=== PATIENT | male | born 1945 | race Caucasian/White ===

== ENCOUNTER → 2018-03-12 08:04 | Outpatient (CLI) | payer MEDICARE, SELFPAY ==
[2018-03-12 09:57] LABS: Alanine Aminotransferase 33 U/L (12-78); Albumin Level 3.9 gm/dL (3.4-5.0); Albumin/Globulin Ratio 1.5 (1.1-1.8); Alkaline Phosphatase 47 U/L (46-116); Anion Gap 12.2 mEq/L (5-15); Aspartate Amino Transferase 20 U/L (15-37); Bilirubin,Total 0.6 mg/dL (0.2-1.0); Blood Urea Nitrogen 17 mg/dL (7-18); Calcium 8.8 mg/dL (8.5-10.1); Carbon Dioxide 26 mmol/L (21.0-32.0); Chloride 108 mmol/L (98-107); Chol/HDL Ratio 3.7 (1-3.5); Cholesterol 116 mg/dL (140-200); Creatinine,Serum 1.09 mg/dL (0.70-1.30); Estimated Glomerular Filt Rate 66 ml/min (>60); GFR (African American) 80 ML/MIN (>60); Globulin 2.6 gm/dl (1.3-3.2); Glucose 106 mg/dL (74-106); HDL Cholesterol 31 mg/dL (27-67); LDL Cholesterol 65 mg/dL (0-130); Potassium 4.2 mmoL/L (3.5-5.1); Sodium 142 mmol/L (136-145); Total Protein,Serum 6.5 gm/dL (6.4-8.2); Triglycerides 101 mg/dL (30-200); VLDL Cholesterol 20 mg/dL (0-40)
== END ==
PROVIDERS: PCP Internal Medicine; Visit Provider Internal Medicine
DX: I25.10 Atherosclerotic heart disease of native coronary artery without angina pectoris (principal); E03.9 Hypothyroidism, unspecified; E78.5 Hyperlipidemia, unspecified
CPT/HCPCS: 36415; 80053; 80061; 84443

== ENCOUNTER → 2019-01-06 07:16 | Outpatient (CLI) | payer MEDICARE, SELFPAY ==
--- NOTE | 2019-01-06 07:20 | CA_ITS ---
PROCEDURE: 2-D M-mode and color Doppler study INDICATIONS FOR THE TEST: Chest pain COPD Heart Murmur Tobacco Smoking Palpitations Fatigue+ Syncope Edema Hypertension Diabetes Mellitus Rheumatic Fever SOB+ELIZABETH+Obesity Hyperlipidemia+ Family History HD Additional History ABN EKG, CABG 2001 PATIENT INFORMATION HEIGHT: 75 WEIGHT:231 GENDER: Male B/P:137/87 2-D/M-MODE INTERPRETATION: 2-D MEASUREMENTS OBSERVED VALUES IN CMS Right Ventricular Dimension (RVDd) 2.9 Interventricular Septum (Thickness)(IVsd) 1.3 Left Ventricular Internal Dimensions(LVIDd) 4.6 Left Ventricular Posterior Wall (Thickness)(LVPWd) 1.2 Aortic Root 3.5 Aortic Cusp Separation 2.1 Left Atrial Dimensions (LAD) 4.2 2D 1. Left atrium is mildly enlarged, left ventricle is normal size, visually estimated ejection fraction approximately 45%, there is marked hypokinesis involving the distal septum, anteroapical and apical wall. There is mild concentric left ventricular hypertrophy seen. 2. The right atrium and right ventricle are mildly enlarged with normal contractility. 3. The aortic valve is minimally thickened and fibrosed. 4. The mitral and tricuspid valve leaflets are minimally thickened. 5. The pulmonic valve is poorly visualized. 6. No significant pericardial effusion noted. DOPPLER INTERROGATION: Doppler interrogation of the aortic, mitral and tricuspid valvular presence of mild mitral and tricuspid regurgitation, tricuspid regurgitation jet velocity is inadequate for calculation of the right ventricular systolic pressure, grade 1 diastolic dysfunction seen with tissue Doppler evidence of raised left atrial pressure. CONCLUSION: 1. Mildly enlarged left atrium, normal left ventricular size, mild concentric left ventricular hypertrophy, visually estimated ejection fraction 45% with segmental wall motion abnormality described above, grade 1 diastolic dysfunction seen with tissue Doppler evidence of raised left atrial pressure. 2. Mild mitral and tricuspid regurgitation 3. No significant pericardial effusion noted.
--- NOTE | 2019-01-06 07:21 | NM_ITS ---
SPECT MYOCARDIAL PERFUSION SCAN, REST AND STRESS: EXERCISE STRESS: [facility] REVIEW QGS EF AND WALL MOTION EVALUATION: QPS - PERFUSION EVALUATION: HISTORY: CAD, ABN EKG PROCEDURE: Rest imaging performed after administration of10.59 millicuries Tc MIBI. Dose administered at7:30 a.m., with imaging thereafter. Stress imaging was then performed following8 minutes 15 seconds of exercise stress. The patient achieved a heart [id number] with projected heart rate of124 . Resting BP145/85 with stress 188/50. At maximum exercise stress,32.0 millicuries Tc MIBI administered at9:00 a.m. with [id number] minutes thereafter. FINDINGS: Perfusion Evaluation: The single slice spect images as well as the [facility] bull's-eye data summary were reviewed. Wall Motion and Ejection Fraction Evaluation: Gated SPECT review and analysis used to evaluate these features. There is a 40 % left ventricular ejection fraction. There seems to be good wall motion Stress images reveal severely decreased activity in the mid anterior apical wall severely decreased in the septum and moderately decreased in the inferior wall. 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 Severely reduced ejection fraction at 40% with mid anterior apical inferior apical hypokinesis. High risk abnormal stress test with clinical correlation required
--- NOTE | 2019-01-06 08:08 | HMH.ITSHM ---
Current Home Medications as stated by this patient Hang Pedersen or unit support representative. []ASA LEVOTHYROXINE FENOFIBRATE ATORVASTATIN
== END ==
PROVIDERS: PCP Internal Medicine; Visit Provider Nurse Practitioner Family
DX: I25.10 Atherosclerotic heart disease of native coronary artery without angina pectoris; R06.00 Dyspnea, unspecified; Z95.1 Presence of aortocoronary bypass graft
CPT/HCPCS: 78452; 93017; 93306; A9502

== ENCOUNTER → 2020-03-07 13:42 | Outpatient (CLI) | payer MEDICARE, SELFPAY ==
--- NOTE | 2020-03-07 13:48 | CA_ITS ---
APPROVED REPORT EXAM: Comprehensive 2D, Doppler, and color-flow Echocardiogram Metal Bonding Assembler: Lanie Mart CRT Ht: 6 ft 2 in Wt: 232lbs BSA: 2.31 BP: 129/77 mmHg Indications: Shortness of Breath, CAD, Hyperlipidemia, CM, CABG 2D Dimensions LVOT 1.71 cm (M/F) 1.5-2.5 M-Mode Dimensions RVDd 3.17 cm (0.9-2.6) LVDd 5.98 cm (3.5-5.7) LVDs 3.73 cm (3.5-5.7) IVSd 1.76 cm (0.6-1.1) PWd 0.76 cm (0.6-1.1) EF (Teich) 66.80% FS 37.60% EDV (Teich) 178.60 mL ESV (Teich) 59.30 mL LV Diastology E/A Ratio 0.75 Mitral Valve MV A Velocity 69.00 (40-130 cm/s) Left Ventricle Left atrium is mildly enlarged, left ventricle is normal size, mild concentric left ventricular hypertrophy, visually estimated ejection fraction of 50%, there appears to be moderate hypokinesis involving the distal septum and apical wall. Grade 1 diastolic dysfunction seen without tissue Doppler evidence of raise left atrial pressure. Right Ventricle Right atrium and right ventricle are normal size and contractility. Aortic Valve Aortic valve is minimally thickened and fibrosed. There is no aortic stenosis, there is trace aortic insufficiency. Mitral Valve Mitral valve is grossly normal, there is mild mitral regurgitation. Tricuspid Valve Tricuspid valve is grossly normal, there is mild tricuspid regurgitation, tricuspid regurgitation jet velocity is inadequate for calculation of the right ventricular systolic pressure. Pulmonic Valve Pulmonic valve is poorly visualized. Great Vessels Aortic root is normal size. Pericardium No significant pericardial effusion noted. Conclusion 1. Mildly enlarged left atrium, normal left ventricular size, mild concentric left ventricular hypertrophy, visually estimated ejection fraction 50% with segmental wall motion abnormality described above, grade 1 diastolic dysfunction seen without tissue Doppler evidence of raise left atrial pressure. 2. Minimally thickened and calcified aortic valve without aortic stenosis, there is trace aortic insufficiency. 3. Mild mitral and tricuspid regurgitation. 4. No significant pericardial effusion noted. Electronically signed by : Vincenzo Rankin 03/07/2020 19:08:27
== END ==
PROVIDERS: PCP Internal Medicine; Visit Provider Nurse Practitioner Family
DX: R94.31 Abnormal electrocardiogram [ECG] [EKG] (principal)
CPT/HCPCS: 93306

== ENCOUNTER 2020-04-05 08:59 | Outpatient (RCR) | payer MEDICARE, SELFPAY | END 2020-09-07 13:52 | disposition home or self-care (01) | LOC: PT 08:59 | PROVIDERS: Visit Provider Internal Medicine | DX: I25.10 Atherosclerotic heart disease of native coronary artery without angina pectoris (principal) | CPT/HCPCS: 93798 ==

== ENCOUNTER → 2020-12-23 09:35 | Outpatient (CLI) | payer MEDICARE, SELFPAY ==
--- NOTE | 2020-12-23 09:41 | XR_ITS ---
PROCEDURE: XR LUMBAR SPINE MIN 4V CLINICAL INDICATION: LOW BACK PAIN COMPARISON: No exams were available for comparison FINDINGS: Five views are obtained. Mild scoliosis convex to the left. Severe bilateral facet spondylosis of L5-S1 with moderate bilateral facet spondylosis of L4-5. Severe degenerative change of L5-S1 with moderate diffuse degenerative change elsewhere throughout the lumbar spine. SI joints are normal. Gallbladder surgically absent. Some degenerative change of the lower thoracic spine noted. IMPRESSION: Severe degenerative change of L5-S1 with moderate degenerative change elsewhere throughout the lumbar spine and severe bilateral facet spondylosis of L5-S1. Moderate bilateral facet spondylosis of L4-5. Mild levoscoliosis. No acute fracture or subluxation. Dictated by: Hermilo Delgado MD 12/23/2020 10:08 Hermilo Delgado MD in [place] 12/23/2020 10:08
[2020-12-23 10:50] LABS: Alanine Aminotransferase 47 U/L (12-78); Albumin Level 4.5 g/dl (3.5-5.0); Albumin/Globulin Ratio 1.9 (1.1-1.8); Alkaline Phosphatase 41 U/L (38-126); Anion Gap 14.2 mEq/L (5-15); Aspartate Amino Transferase 44 U/L (17-59); Bilirubin,Total 0.9 mg/dl (0.2-1.3); Blood Urea Nitrogen 14 mg/dl (9-20); Calcium 9.3 mg/dl (8.4-10.2); Carbon Dioxide 27 mmol/L (22.0-30.0); Chloride 104 mmol/L (98-107); Chol/HDL Ratio 5.8 (1-3.5); Cholesterol 190 mg/dl (140-200); Estimated Glomerular Filt Rate 73 ml/min (>60); GFR (African American) 88 ML/MIN (>60); Globulin 2.4 g/dL (1.3-3.2); Glucose 109 mg/dl (74-100); HDL Cholesterol 33 mg/dl (40-60); Potassium 5.2 mmoL/L (3.5-5.1); Sodium 140 mmol/L (136-145); Total Protein,Serum 6.9 g/dl (6.3-8.2); Triglycerides 192 mg/dl (30-150); VLDL Cholesterol 38 mg/dL (0-40)
[2020-12-23 11:01] LABS: Direct LDL Cholesterol 125.42 mg/dL (100-129)
[2020-12-23 11:20] LABS: Prostate Specific Ag, Diagnost 0.679 ng/ml (0.0-4.0); Thyroid Stimulating Hormone 2.79 uIU/mL (0.465-4.68)
== END ==
PROVIDERS: PCP Internal Medicine; Visit Provider Internal Medicine
DX: I25.10 Atherosclerotic heart disease of native coronary artery without angina pectoris (principal); E78.5 Hyperlipidemia, unspecified; E03.9 Hypothyroidism, unspecified; N40.1 Benign prostatic hyperplasia with lower urinary tract symptoms; M54.5 Low back pain; Z95.1 Presence of aortocoronary bypass graft
CPT/HCPCS: 36415; 72110; 80053; 80061; 84153; 84443

== ENCOUNTER → 2021-01-09 15:24 | Outpatient (CLI) | payer MEDICARE, SELFPAY ==
--- NOTE | 2021-01-09 15:25 | MR_ITS ---
PROCEDURE: MR LUMBAR SPINE WO CON CLINICAL INDICATION: SEVERE DISC DEGENERATION, MILD SCOLIOSIS, LOW BACK PAIN COMPARISON: CR XR LUMBAR SPINE MIN 4V from 12/23/2020 TECHNIQUE: Standard multiplanar multiecho sequences are performed without contrast. 3-D MIP and myelographic images are also rendered and reviewed FINDINGS: There is normal alignment. The spinal cord ends the T12-L1 level. L1-L2: Mild facet and ligamentum hypertrophic change L2-L3: Mild facet and ligamentum hypertrophic change. L3-L4: Facet ligamentum hypertrophy. There is right lateral recess narrowing with the facet abutting upon the right L4 nerve root. Small amount fluid is present in the facet joint on right this level. L4-5: Mild degenerative disc disease with facet ligamentum hypertrophy and mild bilateral foraminal narrowing. This is slightly greater on the left. Minimal bulging disc. L5-S1: 5 mm anterolisthesis of L5 with mild degenerative disc disease. There is moderate left-sided facet and ligamentum hypertrophic change. Bulging disc is present at this level eccentric to the left with a broad based left paracentral, foraminal, and lateral disc osteophyte complex causing left-sided foraminal narrowing and impinging upon the exiting L5 nerve root. IMPRESSION: Multilevel lumbar spondylosis. Please see above for detailed description at each level. There bulging discs, facet and ligamentum hypertrophy and a prominent left paracentral foraminal and lateral disc osteophyte complex at L5-S1. No extruded herniated disc evident. Dictated by: Good Esqueda MD 01/09/2021 16:34 Good Esqueda MD in [place] 01/09/2021 16:34
== END ==
PROVIDERS: PCP Internal Medicine; Visit Provider Internal Medicine
DX: M54.5 Low back pain (principal); M51.36 Other intervertebral disc degeneration, lumbar region; M41.9 Scoliosis, unspecified
CPT/HCPCS: 72148; 76376

== ENCOUNTER → 2021-06-20 09:19 | Outpatient (CLI) | payer MEDICARE, SELFPAY ==
[2021-06-20 10:24] LABS: Chloride 106 mmol/L (98-107); Potassium 4.4 mmoL/L (3.5-5.1); Sodium 139 mmol/L (136-145)
[2021-06-20 10:26] LABS: Alanine Aminotransferase 51 U/L (12-78); Aspartate Amino Transferase 49 U/L (17-59); Blood Urea Nitrogen 14 mg/dl (9-20); Estimated Glomerular Filt Rate 82 ml/min (>60); GFR (African American) 99 ML/MIN (>60)
[2021-06-20 10:27] LABS: Albumin Level 4.6 g/dl (3.5-5.0); Albumin/Globulin Ratio 1.8 (1.1-1.8); Alkaline Phosphatase 44 U/L (38-126); Anion Gap 14.4 mEq/L (5-15); Bilirubin,Total 0.6 mg/dl (0.2-1.3); Calcium 9.5 mg/dl (8.4-10.2); Carbon Dioxide 23 mmol/L (22.0-30.0); Chol/HDL Ratio 5.8 (1-3.5); Cholesterol 207 mg/dl (140-200); Globulin 2.6 g/dL (1.3-3.2); Glucose 107 mg/dl (74-100); HDL Cholesterol 36 mg/dl (40-60); Total Protein,Serum 7.2 g/dl (6.3-8.2); Triglycerides 228 mg/dl (30-150); VLDL Cholesterol 46 mg/dL (0-40)
[2021-06-20 10:38] LABS: Direct LDL Cholesterol 137.61 mg/dL (100-129)
--- NOTE | 2021-06-20 12:55 | CA_ITS ---
APPROVED REPORT EXAM: Comprehensive 2D, Doppler, and color-flow Echocardiogram Variety Lathe Operator: Lanie Mart CRT Ht: 6 ft 3 in Wt: 232lbs BSA: 2.34 BP: 133/77 mmHg Indications: Abnormal ECG, Shortness of Breath, Hyperlipidemia, Cardiomyopathy, CABG 2D Dimensions LVOT 1.87 cm (M/F) 1.5-2.5 LA Volume 36.30 mL LA Volume Index 15.50 mL/m2 (M/F) 16-34 M-Mode Dimensions RVDd 2.96 cm (0.9-2.6) LA Diam 3.59 cm (1.9-4.0) LVDd 5.59 cm (3.5-5.7) Ao Diam 4.50 cm (2.0-3.7) LVDs 3.84 cm (3.5-5.7) IVSd 1.75 cm (0.6-1.1) PWd 0.80 cm (0.6-1.1) EF (Teich) 58.50% FS 31.30% EDV (Teich) 153.00 mL TAPSE 1.53 (<1.7) ESV (Teich) 63.50 mL LV Diastology E Decel Time 263.00 (160-240 msec) E/A Ratio 0.68 MED E' 4.50 (< 7 cm/sec) MED A' 7.40 cm/s E'/MED E' Ratio 12.53 (>14) LAT E' 7.00 (<10 cm/sec) LAT A' 9.50 cm/s E/LAT E' Ratio 8.06 (>14) Aortic Valve AO Peak GR. 4.40 mmHg Mitral Valve MV A Velocity 83.00 (40-130 cm/s) E/A Ratio 0.68 MV Decel. Time 263.00 (160-240 ms) Pulmonary Valve PV Peak Velocity 98.00 (50-150 cm/s) Tricuspid Valve TR P. Velocity 201.00 cm/s RAP Estimate 10.00 mmHg RVSP 26.10 mmHg Left Ventricle Technically difficult study because of the patient factors and poor acoustic windows. Left atrium is mildly enlarged, left ventricle is normal size, mild concentric left ventricular hypertrophy, visually estimated ejection fraction 55% with no regional wall motion abnormality, grade 1 diastolic dysfunction seen without tissue Doppler evidence of raise left atrial pressure. Right Ventricle Right atrium and right ventricle are normal size and contractility. Aortic Valve Aortic valve is minimally thickened and fibrosed, there is no aortic stenosis or aortic insufficiency Mitral Valve Mitral valve is grossly normal, there is trace mitral regurgitation. Tricuspid Valve Tricuspid grossly normal, there is trace tricuspid regurgitation, tricuspid regurgitation jet velocity is inadequate for calculation of the right ventricular systolic pressure. Pulmonic Valve Pulmonic valve is poorly visualized. Great Vessels Aortic root is normal size. Inferior vena cava is poorly visualized. Pericardium No significant pericardial effusion noted. Conclusion #1. Mildly enlarged left atrium, normal left ventricular size, mild concentric left ventricular hypertrophy, visually estimated ejection fraction 55% with no regional wall motion abnormality, grade 1 diastolic dysfunction seen without tissue Doppler evidence of raise left atrial pressure. #2. Trace mitral and tricuspid regurgitation. #3. No significant pericardial effusion. #4. Inferior vena cava is poorly visualized. Electronically signed by : Vincenzo Rankni MD 06/20/2021 19:39:24
== END ==
PROVIDERS: PCP Internal Medicine; Visit Provider Urology
DX: E78.2 Mixed hyperlipidemia (principal); I25.10 Atherosclerotic heart disease of native coronary artery without angina pectoris; I35.1 Nonrheumatic aortic (valve) insufficiency; I42.9 Cardiomyopathy, unspecified; R06.02 Shortness of breath; R94.31 Abnormal electrocardiogram [ECG] [EKG]; Z95.1 Presence of aortocoronary bypass graft
CPT/HCPCS: 36415; 80053; 80061; 93306

== ENCOUNTER → 2021-06-23 15:17 | Outpatient (CLI) | payer MEDICARE, SELFPAY ==
--- NOTE | 2021-06-23 15:20 | XR_ITS ---
PROCEDURE: XR SHOULDER LT MIN 2V CLINICAL INDICATION: BILAT SHOULDER PAIN COMPARISON: No exams were available for comparison FINDINGS: No fracture or dislocation. No lytic or blastic change. There is normal mineralization. Mild osteoarthritic change at the acromioclavicular joint. There is subacromial narrowing with some irregularity of the greater tuberosity cortical surface. Minimal osteoarthritic change glenohumeral joint. Other findings:None. 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
--- NOTE | 2021-06-23 15:20 | XR_ITS ---
PROCEDURE: XR SHOULDER RT MIN 2V CLINICAL INDICATION: BILAT SHOULDER PAIN COMPARISON: No exams were available for comparison FINDINGS: No fracture or dislocation. No lytic or blastic change. There is normal mineralization. Mild osteoarthritis of the acromioclavicular joint and glenohumeral joint with subacromial stenosis and minimal cortical irregularity of the greater tuberosity. Other findings:None. IMPRESSION: Mild osteoarthritis of the acromioclavicular joint and glenohumeral joint with subacromial stenosis and minimal cortical irregularity of the greater tuberosity Dictated by: Good Esqueda MD 06/23/2021 18:26 Good Esqueda MD in [place] 06/23/2021 18:26
== END ==
PROVIDERS: PCP Internal Medicine; Visit Provider Internal Medicine
DX: M25.511 Pain in right shoulder (principal); M25.512 Pain in left shoulder
CPT/HCPCS: 73030

== ENCOUNTER → 2021-12-20 15:26 | Outpatient (CLI) | payer MEDICARE, SELFPAY ==
[2021-12-20 16:44] LABS: Basophils # 0.1 K/mm3 (0-0.2); Eosinophils # 0.4 K/mm3 (0.0-0.4); Hematocrit 47.5 % (42.0-52.0); Hemoglobin 16.3 g/dL (14.1-18.0); Lymphocytes # 2.3 K/mm3 (0.7-4.5); Lymphocytes % 35.5 % (10-50); Mean Corpuscular HGB Conc 34.3 g/dL (31.8-35.4); Mean Corpuscular Hemoglobin 33.2 pg (27.0-31.2); Mean Corpuscular Volume 96.7 fl (80-94); Mean Platelet Volume 8.2 fl (7.4-10.4); Monocytes # 0.5 K/mm3 (0.1-1.0); Monocytes % 7.7 % (1.7-9.3); Neutrophils # 3.2 K/mm3 (1.8-7.8); Neutrophils % 49.7 % (37.0-80.0); Platelet Count 231 K/mm3 (142-424); Red Blood Count 4.91 M/mm3 (4.60-6.20); Red Cell Distribution Width 14.1 % (11.5-17.5); White Blood Count 6.4 K/mm3 (4.8-10.8)
[2021-12-20 17:20] LABS: Alanine Aminotransferase 40 U/L (12-78); Albumin Level 4.3 g/dl (3.5-5.0); Alkaline Phosphatase 50 U/L (38-126); Anion Gap 11.6 mEq/L (5-15); Aspartate Amino Transferase 48 U/L (17-59); Bilirubin,Total 0.5 mg/dl (0.2-1.3); Blood Urea Nitrogen 21 mg/dl (9-20); Calcium 9.7 mg/dl (8.4-10.2); Carbon Dioxide 29 mmol/L (22.0-30.0); Chloride 104 mmol/L (98-107); Cholesterol 109 mg/dl (140-200); Estimated Glomerular Filt Rate 65 ml/min (>60); GFR (African American) 79 ML/MIN (>60); Globulin 2.2 g/dL (1.3-3.2); Glucose 105 mg/dl (74-100); HDL Cholesterol 27 mg/dl (40-60); Potassium 4.6 mmoL/L (3.5-5.1); Sodium 140 mmol/L (136-145); Total Protein,Serum 6.5 g/dl (6.3-8.2); Triglycerides 157 mg/dl (30-150); VLDL Cholesterol 31 mg/dL (0-40)
[2021-12-20 17:42] LABS: Direct LDL Cholesterol 58.48 mg/dL (100-129)
[2021-12-20 17:51] LABS: Prostate Specific Ag Screen 0.9 ng/ml (0.0-4.0); Thyroid Stimulating Hormone 3.14 uIU/mL (0.465-4.68)
== END ==
PROVIDERS: PCP Internal Medicine; Visit Provider Internal Medicine
DX: I25.10 Atherosclerotic heart disease of native coronary artery without angina pectoris (principal); E03.9 Hypothyroidism, unspecified; E78.5 Hyperlipidemia, unspecified; N40.1 Benign prostatic hyperplasia with lower urinary tract symptoms; Z12.5 Encounter for screening for malignant neoplasm of prostate; Z95.1 Presence of aortocoronary bypass graft
CPT/HCPCS: 36415; 80053; 80061; 84443; 85025; G0103

== ENCOUNTER → 2022-06-20 09:22 | Outpatient (CLI) | payer MEDICARE, SELFPAY ==
[2022-06-20 10:59] LABS: Chloride 107 mmol/L (98-107); Potassium 4.3 mmoL/L (3.5-5.1); Sodium 139 mmol/L (136-145)
[2022-06-20 11:02] LABS: Alanine Aminotransferase 35 U/L (12-78); Albumin Level 4.4 g/dl (3.5-5.0); Albumin/Globulin Ratio 1.9 (1.1-1.8); Alkaline Phosphatase 50 U/L (38-126); Anion Gap 13.3 mEq/L (5-15); Aspartate Amino Transferase 37 U/L (17-59); Bilirubin,Total 0.7 mg/dl (0.2-1.3); Blood Urea Nitrogen 14 mg/dl (9-20); Carbon Dioxide 23 mmol/L (22.0-30.0); Cholesterol 125 mg/dl (140-200); Estimated Glomerular Filt Rate 82 ml/min (>60); GFR (African American) 99 ML/MIN (>60); Globulin 2.3 g/dL (1.3-3.2); Total Protein,Serum 6.7 g/dl (6.3-8.2); Triglycerides 131 mg/dl (30-150); VLDL Cholesterol 26 mg/dL (0-40)
[2022-06-20 11:03] LABS: Calcium 9.7 mg/dl (8.4-10.2); Chol/HDL Ratio 4.5 (1-3.5); Glucose 103 mg/dl (74-100); HDL Cholesterol 28 mg/dl (40-60)
[2022-06-20 11:14] LABS: Direct LDL Cholesterol 71.19 mg/dL (100-129)
== END ==
PROVIDERS: PCP Internal Medicine; Visit Provider Internal Medicine
DX: I25.10 Atherosclerotic heart disease of native coronary artery without angina pectoris (principal); E03.9 Hypothyroidism, unspecified; E78.5 Hyperlipidemia, unspecified; M15.0 Primary generalized (osteo)arthritis; Z95.1 Presence of aortocoronary bypass graft
CPT/HCPCS: 36415; 80053; 80061

== ENCOUNTER → 2022-12-19 14:42 | Outpatient (CLI) | payer MEDICARE, SELFPAY | PROVIDERS: PCP Internal Medicine; Visit Provider Internal Medicine | DX: I25.10 Atherosclerotic heart disease of native coronary artery without angina pectoris (principal) ==

== ENCOUNTER → 2022-12-24 08:17 | Outpatient (CLI) | payer MEDICARE, SELFPAY ==
[2022-12-24 10:06] LABS: Basophils % 0.3 % (0.1-2.0); Eosinophils # 0.4 K/mm3 (0.0-0.4); Eosinophils % 7.4 % (0.1-12.0); Hematocrit 48.9 % (42.0-52.0); Hemoglobin 16.2 g/dL (14.1-18.0); Lymphocytes # 1.9 K/mm3 (0.7-4.5); Lymphocytes % 35.1 % (10-50); Mean Corpuscular Hemoglobin 31.5 pg (27.0-31.2); Mean Corpuscular Volume 95.5 fl (80-94); Mean Platelet Volume 7.8 fl (7.4-10.4); Monocytes # 0.5 K/mm3 (0.1-1.0); Monocytes % 9.2 % (1.7-9.3); Neutrophils # 2.6 K/mm3 (1.8-7.8); Platelet Count 208 K/mm3 (142-424); Red Blood Count 5.12 M/mm3 (4.60-6.20); Red Cell Distribution Width 14.4 % (11.5-17.5); White Blood Count 5.4 K/mm3 (4.8-10.8)
[2022-12-24 10:47] LABS: Alanine Aminotransferase 37 U/L (12-78); Albumin Level 4.4 g/dl (3.5-5.0); Albumin/Globulin Ratio 1.9 (1.1-1.8); Alkaline Phosphatase 40 U/L (38-126); Anion Gap 15.5 mEq/L (5-15); Aspartate Amino Transferase 40 U/L (17-59); Bilirubin,Total 0.8 mg/dl (0.2-1.3); Blood Urea Nitrogen 16 mg/dl (9-20); Calcium 9.2 mg/dl (8.4-10.2); Carbon Dioxide 27 mmol/L (22.0-30.0); Chloride 102 mmol/L (98-107); Chol/HDL Ratio 4.1 (1-3.5); Cholesterol 118 mg/dl (140-200); Estimated Glomerular Filt Rate 72 ml/min (>60); GFR (African American) 87 ML/MIN (>60); Globulin 2.3 g/dL (1.3-3.2); Glucose 99 mg/dl (74-100); HDL Cholesterol 29 mg/dl (40-60); Potassium 4.5 mmoL/L (3.5-5.1); Sodium 140 mmol/L (136-145); Total Protein,Serum 6.7 g/dl (6.3-8.2); Triglycerides 135 mg/dl (30-150); VLDL Cholesterol 27 mg/dL (0-40)
[2022-12-24 10:58] LABS: Direct LDL Cholesterol 67.31 mg/dL (100-129)
[2022-12-24 11:18] LABS: Prostate Specific Ag Screen 0.9 ng/ml (0.0-4.0)
== END ==
PROVIDERS: PCP Internal Medicine; Visit Provider Internal Medicine
DX: I25.10 Atherosclerotic heart disease of native coronary artery without angina pectoris (principal); E03.9 Hypothyroidism, unspecified; E78.5 Hyperlipidemia, unspecified; M15.0 Primary generalized (osteo)arthritis; N40.1 Benign prostatic hyperplasia with lower urinary tract symptoms; Z12.5 Encounter for screening for malignant neoplasm of prostate
CPT/HCPCS: 36415; 80053; 80061; 84443; 85025; G0103

== ENCOUNTER 2023-01-24 08:41 | Emergency (ER) | payer MEDICARE, SELFPAY ==
[2023-01-24 08:41] VITALS: BP 146/60; PULSE 60; RESP 18; TEMP 36.4; O2SAT 98; BMI 28.7
--- NOTE | 2023-01-24 08:50 | EXP.UTC ---
Discharge Plan Disposition Patient Disposition: Home, Self-Care Condition: Good Prescriptions Prescriptions: New methylprednisolone 4 mg Tablets,Dose Pack 4 mg PO DIRECTED Qty: 21 0RF cyclobenzaprine 5 mg tablet 5 mg PO BIDP PRN (Reason: muscle spasm) Qty: 20 0RF No Action oxybutynin chloride 10 mg tablet extended release 24hr 10 mg PO DAILY loratadine 10 mg tablet 10 mg PO DAILY fenofibrate nanocrystallized 145 mg tablet 145 mg PO DAILY aspirin [Adult Low Dose Aspirin] 81 mg tablet,delayed release (DR/EC) 81 mg PO DAILY levothyroxine [Synthroid] 75 mcg tablet 88 mcg PO DAILY atorvastatin 80 mg tablet 80 mg PO HS losartan 25 mg tablet See Rx Instructions .ROUTE .COMPLEX Qty: 90 2RF Dose Instruction: TAKE 1 TABLET DAILY Rx Instructions: TAKE 1 TABLET DAILY Referrals Follow up/Referrals: Koko Castillo MD [Primary Care Provider] - See instructions Activity Restrictions/Add. Instructions Additional Instructions/Restrictions: Go home and rest. It would be best if you rested tomorrow too. No heavy lifting. No twisting. Take the oral medications as directed. The muscle relaxer (cyclobenzaprine--Flexeril) will make you drowsy, so don't drive or operate heavy machinery after taking it. Don't start the oral steroids (medrol dose pack) until tomorrow, since you had the shots in here today. Follow up with your regular doctor. GO TO THE ER FOR ANY WORSENING SYMPTOMS OR CONCERN, ESPECIALLY BOWEL OR BLADDER ISSUES, SADDLE AREA NUMBNESS, FEVER, ETC Clinical Impressions Clinical Impression: Hip pain, right Instructions Patient Instructions: DI for Sciatica Discharge ED Provider: Hermilo Zuñiga [facility] General Stated complaint: RT hip pain no known accident Time Seen by Provider: 01/24/23 08:50 History of Present Illness Provider Complaint: He states that for the past 2 days he has had worsening right hip pain that radiates down his right leg. He denies any injury and recent falls. He does have a history of having flare ups of pain like this. He has been diagnosed with sciatica in the past. He denies any urinary complaints. Related Data Home Medications Medication Instructions Recorded Confirmed aspirin 81 mg tablet,delayed 81 mg PO DAILY 12/29/18 12/27/22 release (Adult Low Dose Aspirin) fenofibrate nanocrystallized 145 145 mg PO DAILY 12/29/18 12/27/22 mg tablet levothyroxine 75 mcg tablet 88 mcg PO DAILY 08/18/19 12/27/22 (Synthroid) atorvastatin 80 mg tablet 80 mg PO HS 06/28/21 12/27/22 loratadine 10 mg tablet 10 mg PO DAILY 12/27/22 12/27/22 oxybutynin chloride 10 mg 10 mg PO DAILY 12/27/22 12/27/22 tablet,extended release 24 hr Previous Rx's Medication Instructions Recorded losartan 25 mg tablet See Rx Instructions .Route 06/28/21 .COMPLEX #90 tabs cyclobenzaprine 5 mg tablet 5 mg PO BIDP PRN muscle spasm #20 01/24/23 tabs methylprednisolone 4 mg tablets in 4 mg PO DIRECTED #21 tabs 01/24/23 a dose pack Allergies Allergy/AdvReac Type Severity Reaction Status Date / Time No Known Allergies Allergy Verified 12/27/22 09:15 [facility] Disclaimer: The information contained in this section may have been updated after the patient was seen, as this information can be updated by other users. Medical History Cardiomyopathy Social History Smoking Status: Never smoker second hand exposure: No alcohol intake: never substance use type: denies use current occupational status: retired Travel in the last 8 weeks: Inside the [place] household members: spouse housing: house ROS Obtained: Yes All systems reviewed & no additional complaints except as documented Constitutional Constitutional: Denies chills and Denies fever(s) Eyes Eyes: Denies eye discharge ENT
[2023-01-24 09:34] VITALS: BP 146/60; PULSE 60; RESP 18; TEMP 36.4; O2SAT 98
== END 2023-01-24 09:35 | disposition home or self-care (01) ==
PROVIDERS: Emergency Provider Nurse Practitioner Family; PCP Internal Medicine
DX: M25.551 Pain in right hip (principal); I42.9 Cardiomyopathy, unspecified
CPT/HCPCS: 96372; 99204; 99212; G0463

== ENCOUNTER → 2023-06-19 09:24 | Outpatient (CLI) | payer MEDICARE, SELFPAY ==
[2023-06-19 10:20] LABS: Chloride 105 mmol/L (98-107); Potassium 4.7 mmoL/L (3.5-5.1); Sodium 140 mmol/L (136-145)
[2023-06-19 10:22] LABS: Alanine Aminotransferase 34 U/L (12-78); Aspartate Amino Transferase 37 U/L (17-59); Blood Urea Nitrogen 16 mg/dl (9-20); Estimated Glomerular Filt Rate 72 ml/min (>60); GFR (African American) 87 ML/MIN (>60)
[2023-06-19 10:23] LABS: Albumin Level 4.9 g/dl (3.5-5.0); Alkaline Phosphatase 42 U/L (38-126); Anion Gap 9.7 mEq/L (5-15); Bilirubin,Total 0.8 mg/dl (0.2-1.3); Calcium 9.4 mg/dl (8.4-10.2); Carbon Dioxide 30 mmol/L (22.0-30.0); Globulin 2.5 g/dL (1.3-3.2); Glucose 106 mg/dl (74-100); Total Protein,Serum 7.4 g/dl (6.3-8.2)
[2023-06-19 12:04] LABS: Cholesterol 132 mg/dl (140-200); HDL Cholesterol 33 mg/dl (40-60); Triglycerides 118 mg/dl (30-150); VLDL Cholesterol 24 mg/dL (0-40)
[2023-06-19 12:15] LABS: Direct LDL Cholesterol 84.43 mg/dL (100-129)
== END ==
PROVIDERS: PCP Internal Medicine; Visit Provider Internal Medicine
DX: I25.10 Atherosclerotic heart disease of native coronary artery without angina pectoris (principal); Z95.1 Presence of aortocoronary bypass graft; E78.5 Hyperlipidemia, unspecified; M15.0 Primary generalized (osteo)arthritis; E03.9 Hypothyroidism, unspecified; N40.1 Benign prostatic hyperplasia with lower urinary tract symptoms
CPT/HCPCS: 36415; 80053; 80061

== ENCOUNTER → 2023-09-09 08:58 | Outpatient (POV) | payer MEDICARE, SELFPAY ==
--- NOTE | 2023-09-09 09:26 | A.OFFVIS_ITS ---
HPI Data of Consult Patient: new to practice Consult date: 09/09/23 Requesting Physician: Trisha Chavez APRN Primary Care Provider: Koko Castillo MD Consult Narrative Reason for consult: Low back pain, leg pain, history right SI issues History of present illness: Mr. Pedersen is a 78 year old male who presents today as a new patient. He is a referral from Dr. Castillo's office. Today he rates his pain a 5 out of 10. Patient states he has pain throughout his low back with occasional hip pain more prominent on the right side. Patient does state that the SI issues will occasionally flareup however it is not always constant. 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 He states that this pain has significantly improved however he continues to have pain in his low back that is worse into his legs when he is up for prolonged standing or walking. Patient states that the pain is an aching, sharp sensation that does make him have to stop and sit and take breaks. Patient states that he is perfectly fine when he is resting or sitting in a chair with minimal pain. Patient does state the current issues are interfering with his ability perform activities of daily living such as cooking and cleaning. Patient does state that he frequently has to lean when doing the dishes due to the worsening pain symptoms. Patient has tried ikwb-wbo-eaiwico medication along with heat and ice and topicals such as diclofenac with minimal relief. Patient is interested in any help we may be able to provide. Patient does state that he has had a prior MRI in the past. Patient is not on any scheduled medications. His Stevan has been reviewed and is appropriate. CC: Trisha Chavez APRN [facility] Disclaimer: The information contained in this section may have been updated after the patient was seen, as this information can be updated by other users. Medical History (Updated 09/09/23 @ 10:13 by Trisha Chavez APRN) Cardiomyopathy Family History (Updated 09/09/23 @ 09:34 by Blaine Liriano RN) Other No significant family history Social History Smoking Status: Never smoker second hand exposure: No alcohol intake: never substance use type: denies use current occupational status: employed Travel in the last 8 weeks: None household members: spouse housing: house Review of Systems Review of Systems Review of systems:: pertinent systems reviewed and negative unless documented below Review of systems (narrative): Review of Systems: General: No recent weight changes, no fever, no sleep disturbances Respiratory: No cough, no shortness of air, no recurring pulmonary infections Cardiovascular/peripheral vascular: No chest pain, no palpitations, no edema, no shortness of breath Gastrointestinal: No new onset incontinence, normal bowel movements reported Genitourinary: No new onset incontinence Musculoskeletal: Low back pain, leg pain Psychiatric: [Normal mood/affect] Neurological: [Denies weakness in extremities], [denies balance issues] Meds Home Medications and Allergies Home Medications Medication Instructions Recorded Confirmed Type aspirin 81 mg tablet,delayed 81 mg PO DAILY 12/29/18 07/04/23 History release (Adult Low Dose Aspirin) fenofibrate nanocrystallized 145 145 mg PO DAILY 12/29/18 07/04/23 History mg tablet levothyroxine 75 mcg tablet 88 mcg PO DAILY 08/18/19 07/04/23 History (Synthroid) atorvastatin 80 mg tablet 80 mg PO HS 06/28/21 07/04/23 History losartan 25 mg tablet See Rx Instructions .Route 06/28/21 07/04/23 Rx .COMPLEX #90 tabs oxybutynin chloride 10 mg 10 mg PO DAILY 12/27/22 07/04/23 History tablet,extended release 24 hr New Prescriptions to Start Prescriptions: Allergies Allergy/AdvReac Type Severity Reaction Status Date / Time No Known Allergies Allergy Verified 07/04/23 09:37 Objective Narrative: Physical Exam: General: Alert and oriented x3, no acute distress, pleasant and cooperative Lungs: Respirations even and unlabored, symmetrical chest expansion Eyes: PERRL Musculoskeletal: Flexion and extension of lumbar [spine] somewhat guarded se condary to pain, [antalgic gait noted] Neurological: Speech clear, no gross sensory deficit Additional findings Additional findings: FINDINGS: No fracture or dislocation. No lytic or blastic change. There is normal mineralization. Mild osteoarthritic change at the acromioclavicular joint. There is subacromial narrowing with some irregularity of the greater tuberosity cortical surface. Minimal osteoarthritic change glenohumeral joint. Other findings:None. 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 No lytic or blastic change. There is normal mineralization. Mild osteoarthritis of the acromioclavicular joint and glenohumeral joint with subacromial stenosis and minimal cortical irregularity of the greater tuberosity. Other findings:None. IMPRESSION: Mild osteoarthritis of the acromioclavicular joint and glenohumeral joint with subacromial stenosis and minimal cortical irregularity of the greater tuberosity Dictated by: Good Esqueda MD 06/23/2021 18:26 Good Esqueda MD in [place] 06/23/2021 18:[address] [id number] Magnetic Resonance Report Signed Patient: Hang Pedersen MR#: [id number] : 1945 Acct:[id number] Age/Sex: 75 / M ADM Date: 01/09/21 Loc: RAD Attending Dr: Koko Castillo Ordering Physician: Koko Castillo Date of Service: 01/09/21 Procedure(s): MR lumbar spine wo con Accession Number(s): [id number] cc: Good Esqueda MD; Koko Castillo ~ PROCEDURE: MR LUMBAR SPINE WO CON CLINICAL INDICATION: SEVERE DISC DEGENERATION, MILD SCOLIOSIS, LOW BACK PAIN COMPARISON: CR XR LUMBAR SPINE MIN 4V from 12/23/2020 TECHNIQUE: Standard multiplanar multiecho sequences are performed without contrast. 3-D MIP and myelographic images are also rendered and reviewed FINDINGS: There is normal alignment. The spinal cord ends the T12-L1 level. L1-L2: Mild facet and ligamentum hypertrophic change L2-L3: Mild facet and ligamentum hypertrophic change. L3-L4: Facet ligamentum hypertrophy. There is right lateral recess narrowing with the facet abutting upon the right L4 nerve root. Small amount fluid is present in the facet joint on right this level. L4-5: Mild degenerative disc disease with facet ligamentum hypertrophy and mild bilateral foraminal narrowing. This is slightly greater on the left. Minimal bulging disc. L5-S1: 5 mm anterolisthesis of L5 with mild degenerative disc disease. There is moderate left-sided facet and ligamentum hypertrophic change. Bulging disc is present at this level eccentric to the left with a broad based left paracentral, foraminal, and lateral disc osteophyte complex causing left-sided foraminal narrowing and impinging upon the exiting L5 nerve root. IMPRESSION: Multilevel lumbar spondylosis. Please see above for detailed description at each level. There bulging discs, facet and ligamentum hypertrophy and a prominent left paracentral foraminal and lateral disc osteophyte complex at L5-S1. No extruded herniated disc evident. Dictated by: Good Esqueda MD 01/09/2021 16:34 Good Esqueda MD in [place] 01/09/2021 16:34 Assessment and Plan *Assessment and plan (1) Degenerative disc disease, lumbar: Status: Acute Category: Medical Code(s): M51.36 - Other intervertebral disc degeneration, lumbar region (2) Lumbar radiculopathy: Status: Acute Category: Medical Code(s): M54.16 - Radiculopathy, lumbar region (3) Bilateral hip pain: Status: Acute Category: Medical Code(s): M25.551 - Pain in right hip; M25.552 - Pain in left hip (4) Lumbar spinal stenosis: Status: Acute Qualifiers: Neurogenic claudication status: with neurogenic claudication Qualified Code(s): M48.062 - Spinal stenosis, lumbar region with neurogenic claudication Category: Medical Code(s): M48.061 - Spinal stenosis, lumbar region without neurogenic claudication Plan Patient is experiencing significant pain in his low back and legs with prolonged standing or walking. Patient did have limited range of motion of his lumbar spine during today's exam. I have discussed with the patient that he may benefit from a lumbar epidural steroid injection. Risk and benefits were discussed with the patient and he will proceed forward with this plan of care. I will also order the patient a compounded cream. Patient did have multilevel ligamentum flavum hypertrophy and symptoms consistent with lumbar spinal stenosis with neurogenic claudication symptoms. Patient was counseled that he may be a beneficial candidate of a lumbar decompression in the future. We will follow-up with this at future visits. Patient will be scheduled for a lumbar epidural steroid injection L4-L5 with epidurogram under fluoroscopy. Patient has been instructed to contact the clinic with any concerns before the next appointment. Dr. Velázquez has reviewed this note and agrees with this plan of care. This note was dictated using voice recognition software and make contain errors or omissions.
[2023-09-09 09:28] VITALS: BP 150/90; PULSE 69; RESP 18; BMI 26.9
== END ==
PROVIDERS: PCP Internal Medicine; Visit Provider Nurse Practitioner Family
DX: M25.551 Pain in right hip; M25.552 Pain in left hip; M48.062 Spinal stenosis, lumbar region with neurogenic claudication; M51.16 Intervertebral disc disorders with radiculopathy, lumbar region
CPT/HCPCS: 99202; G0463

== ENCOUNTER 2023-10-08 09:11 | Day surgery (SDC) | payer MEDICARE, SELFPAY ==
[2023-10-08 09:16] VITALS: BP 131/72; PULSE 63; RESP 18; O2SAT 98; BMI 26.9
[2023-10-08] MEDS: methylPREDNISolone ACETATE 80MG/ML VIAL 80 MG (09:52)
[2023-10-08] MEDS: LIDOCAINE 1% 30ML PF VIAL 30 ML (09:52)
[2023-10-08 09:54] VITALS: BP 128/64; PULSE 59; RESP 18; O2SAT 98
[2023-10-08 09:55] VITALS: BP 128/64; PULSE 58; RESP 18; O2SAT 98
[2023-10-08 10:10] VITALS: BP 132/74; PULSE 59; RESP 20; O2SAT 95
[2023-10-08] MEDS: IOPAMIDOL-200 (41%);10ML VIAL 10 ML IV (12:59)
--- NOTE | 2023-10-08 13:38 | P.PCN_ITS ---
Procedure Date: 10/08/23 Time: 13:39 Anesthesiologist:: Jose A Velázquez MD Complications:: None Pre-procedure Diagnosis:: Degenerative disc disease of lumbar spine with lumbar spinal stenosis and neurogenic claudication symptoms with lumbar radiculopathy symptoms Post-procedure Diagnosis:: Same Indications for Procedure:: This patient is a pleasant 78-year-old white male who we are treating for low back pain with lumbar spinal stenosis and neurogenic claudication symptoms along with some lumbar radiculopathy symptoms. He has not had a lumbar epidural steroid injection before however his MRI does indicate severe degenerative changes with ligamentum flavum hypertrophy at L2-L3, L3-4, L4-5 and L5-S1. Most of his pain is in the back and legs. He has increased pain while standing and walking. Will do a lumbar epidural steroid injection with epidurogram today to assess levels of stenosis and candidacy for minimally invasive lumbar decompression. Procedure Details:: Lumbar epidural steroid injection with epidurogram informed consent was obtained and the risk and benefits of the procedure was explained to the patient. The patient was taken to the procedure room. The patient was placed prone on the procedure table. The patient was prepped and draped in sterile fashion. C-arm fluoroscopy was used to view the lumbar spine. Skin and subcutaneous tissues were anesthetized using lidocaine. I placed an 18-gauge epidural needle and advanced into the L4-L5 interspace using fluoroscopic guidance and [id number] to air. After confirmation of needle placement in the epidural space with dye I injected 2 mL of lidocaine 1 .5% with Depo-Medrol 80 mg. Patient tolerated the procedure well with no complications. Plan and Disposition:: Based on epidurogram patient does have some stenosis at L3-L4 and L4-L5. However this is not severe. We will follow-up with this patient to assess efficacy of this lumbar epidural steroid injection since he has not had 1 before and if it is not long-lasting we may proceed to minimally invasive lumbar decompression bilateral L3-L4 and L4-L5. He does have significant stenosis at these levels based on epidurogram and MRI. However, we will first assess efficacy of this lumbar epidural steroid injection since he is not had these before.
== END 2023-10-08 10:10 | disposition home or self-care (01) ==
LOC: SC.PAINP 09:12
PROVIDERS: PCP Internal Medicine; Visit Provider Anesthesiology
DX: M51.16 Intervertebral disc disorders with radiculopathy, lumbar region (principal); M48.062 Spinal stenosis, lumbar region with neurogenic claudication
CPT/HCPCS: 62323; J1010; Q9966

== ENCOUNTER 2023-10-23 09:10 | Outpatient (POV) | payer MEDICARE, SELFPAY ==
[2023-10-23 09:11] VITALS: BP 144/94; PULSE 67; RESP 18; O2SAT 97; BMI 27.5
--- NOTE | 2023-10-23 10:15 | EXP.PAIN.SOA ---
[facility] Pain Management SOAP Note Subjective:: Patient is a pleasant 78-year-old male who presents today for follow-up of lumbar epidural steroid injection L4-L5 with epidurogram on 10/08/2023. Today he rates his pain a 0 out of 10 however he states it will go up much higher as he increases his activity throughout the day. Patient states that it is still his low back pain that is causing more severe symptoms and that it will go past a 5 out of 10. Patient does state that he has not noticed any improvement following this injection. Patient did have the epidurogram to assess his ligamentum flavum hypertrophy and was found to have more prominent stenosis at the L3-L4 level and L4-L5 level. Patient does state that he continues to have chronic pain that is fine when he sitting however when he gets up and starts to walk he does have symptoms radiating down into his legs. Patient states this does interfere with his ability perform activities of daily living such as cooking and cleaning. Patient has tried and failed [id number] medication, heat and ice and topicals with minimal relief. Patient was also prescribed compounded cream at our last visit however states that he did not notice significant relief with this either. His Stevan has been reviewed and is appropriate. Review of Systems: General: No recent weight changes, no fever, no sleep disturbances Respiratory: No cough, no shortness of air, no recurring pulmonary infections Cardiovascular/peripheral vascular: No chest pain, no palpitations, no edema, no shortness of breath Gastrointestinal: No new onset incontinence, normal bowel movements reported Genitourinary: No new onset incontinence Musculoskeletal: Low back pain, bilateral leg pain, right hip pain Psychiatric: [Normal mood/affect] Neurological: [Denies weakness in extremities], [denies balance issues] Objective:: Physical Exam: General: Alert and oriented x3, no acute distress, pleasant and cooperative Lungs: Respirations even and unlabored, symmetrical chest expansion Eyes: PERRL Musculoskeletal: Flexion and extension of lumbar [spine] somewhat guarded secondary to pain, [antalgic gait noted] Neurological: Speech clear, no gross sensory deficit Assessment:: Degenerative disc disease of lumbar spine with lumbar radiculopathy symptoms, bilateral hip pain, lumbar spinal stenosis with neurogenic claudication symptoms Plan:: Patient continues to experience significant pain related to his lumbar spinal stenosis. I have reviewed over the findings from the lumbar epidural with epidurogram that he was a potential candidate for the lumbar decompression of L3-L4 and L4-L5. Risk and benefits and educational handouts were already given to the patient we have reviewed back over these items. Patient would like to have time to speak with his regarding this. I have also discussed with the patient in future he may also benefit from a lumbar epidural steroid injection at the L5-S1 level where the stenosis is not as prominent. Patient acknowledges understanding for this as well. I have discussed with the patient that in future it may be beneficial to order more advanced imaging such as the MRI since it has been of couple of years. Patient was counseled that he can contact our office between now and his next visit if he would like to either proceed forward with the minimally invasive lumbar decompression or the LESI L5-S1 under fluoroscopy. Patient will return to clinic in 1 month for reevaluation of symptoms and plan of care. Patient has been instructed to contact the clinic with any concerns before the next appointment. Dr. Velázquez has reviewed this note and agrees with this plan of care. This note was dictated using voice recognition software and make contain errors or omissions. [facility] Disclaimer: The information contained in this section may have been updated after the patient was seen, as this information can be updated by other users. Medical History Cardiomyopathy Family History Other No significant family history Social History Smoking Status: Never smoker second hand exposure: No alcohol intake: never substance use type: denies use current occupational status: retired Travel in the last 8 weeks: None household members: spouse housing: house
== END 2023-10-23 23:59 ==
LOC: SC.PAIN 09:11
PROVIDERS: PCP Internal Medicine; Visit Provider Nurse Practitioner Family
DX: M51.16 Intervertebral disc disorders with radiculopathy, lumbar region (principal); M25.551 Pain in right hip; M25.552 Pain in left hip; M48.062 Spinal stenosis, lumbar region with neurogenic claudication
CPT/HCPCS: 99212; G0463

== ENCOUNTER 2023-11-21 08:42 | Outpatient (POV) | payer MEDICARE, SELFPAY ==
[2023-11-21 08:53] VITALS: BP 137/69; PULSE 68; RESP 18; O2SAT 98; BMI 27.5
--- NOTE | 2023-11-21 09:13 | A.OFFVIS_ITS ---
[facility] Pain Management SOAP Note Subjective:: Patient is a pleasant 78-year-old male who presents today for 1 month follow-up. Today he rates his pain a 2 out of 10 however states his pain will increase with increased ambulation as the day goes on. Patient does state that he still continues to have significant pain throughout his low back and legs with prolonged standing or walking. Patient does state the pain interferes with his ability perform activities of daily living such as cooking and cleaning. Patient did undergo a lumbar epidural with epidurogram that did show that he was a potential candidate for a lumbar decompression of the L3-L4 and L4-L5. Patient was given information and educational handouts regarding this procedure. He does state that he would like to proceed forward with this plan of care. Patient does also have a anniversary trip coming up in December that he states he would also like to see about a repeat injection to see if this would help because the trip will require a lot of walking. Patient is prescribed compounded cream. His Stevan has been reviewed and is appropriate. Review of Systems: General: No recent weight changes, no fever, no sleep disturbances Respiratory: No cough, no shortness of air, no recurring pulmonary infections Cardiovascular/peripheral vascular: No chest pain, no palpitations, no edema, no shortness of breath Gastrointestinal: No new onset incontinence, normal bowel movements reported Genitourinary: No new onset incontinence Musculoskeletal: Low back pain, bilateral leg pain Psychiatric: [Normal mood/affect] Neurological: [Denies weakness in extremities], [denies balance issues] Objective:: Physical Exam: General: Alert and oriented x3, no acute distress, pleasant and cooperative Lungs: Respirations even and unlabored, symmetrical chest expansion Eyes: PERRL Musculoskeletal: Flexion and extension of lumbar [spine] somewhat guarded secondary to pain, [antalgic gait noted] Neurological: Speech clear, no gross sensory deficit Assessment:: Degenerative disc disease of lumbar spine with lumbar radiculopathy symptoms, lumbar spinal stenosis with neurogenic claudication symptoms, bilateral hip pain Plan:: Patient is experiencing continued pain throughout his low back and legs related to spinal stenosis with neurogenic claudication symptoms. I have reviewed over again the risk and benefits of the minimally invasive lumbar decompression. The patient would like to proceed forward with this plan of care. He is not on any blood thinners. I have also discussed the risk and benefits of repeat lumbar epidural steroid injection. He would like to proceed forward with this option as well. Patient has continued to do at home exercising and stretching for longer than 6 weeks between injection with minimal improvement. He has tried and failed conservative therapies including oral medication, heat and ice, topicals, prior physical therapy. We will submit to insurance for the lumbar epidural steroid injection L5-S1 under fluoroscopy as well as the minimally invasive lumbar decompression of L3-L4 and L4-L5 where the ligamentum flavum was most significantly affected and was demonstrated during the epidurogram. Patient acknowledges understanding and agrees with this plan of care. Patient has been instructed to contact the clinic with any concerns before the next appointment. Dr. Velázquez has reviewed this note and agrees with this plan of care. This note was dictated using voice recognition software and make contain errors or omissions. [facility] Disclaimer: The information contained in this section may have been updated after the patient was seen, as this information can be updated by other users. Medical History Cardiomyopathy Family History Other No significant family history Social History Smoking Status: Never smoker second hand exposure: No alcohol intake: never substance use type: denies use current occupational status: other Travel in the last 8 weeks: None household members: spouse housing: house
== END 2023-11-21 23:59 | disposition home or self-care (01) ==
LOC: SC.PAIN 08:43
PROVIDERS: PCP Internal Medicine; Visit Provider Nurse Practitioner Family
DX: M51.16 Intervertebral disc disorders with radiculopathy, lumbar region (principal); M48.062 Spinal stenosis, lumbar region with neurogenic claudication; M25.551 Pain in right hip; M25.552 Pain in left hip
CPT/HCPCS: 99212; G0463

== ENCOUNTER 2023-12-12 07:23 | Outpatient (CLI) | payer MEDICARE, SELFPAY ==
[2023-12-12 07:40] LABS: Basophils % 0.7 % (0.1-2.0); Eosinophils # 0.3 K/mm3 (0.0-0.4); Eosinophils % 5.3 % (0.1-12.0); Hemoglobin 15.7 g/dL (14.1-18.0); Lymphocytes # 1.9 K/mm3 (0.7-4.5); Lymphocytes % 35.3 % (10-50); Mean Corpuscular HGB Conc 32.8 g/dL (31.8-35.4); Mean Corpuscular Hemoglobin 32.7 pg (27.0-31.2); Mean Corpuscular Volume 99.8 fl (80-94); Monocytes # 0.4 K/mm3 (0.1-1.0); Monocytes % 8.1 % (1.7-9.3); Neutrophils # 2.7 K/mm3 (1.8-7.8); Neutrophils % 50.6 % (37.0-80.0); Platelet Count 210 K/mm3 (142-424); Red Blood Count 4.81 M/mm3 (4.60-6.20); Red Cell Distribution Width 14.7 % (11.5-17.5); White Blood Count 5.3 K/mm3 (4.8-10.8)
[2023-12-12 08:16] LABS: Chloride 105 mmol/L (98-107); Potassium 4.2 mmoL/L (3.5-5.1); Sodium 137 mmol/L (136-145)
[2023-12-12 08:18] LABS: Alanine Aminotransferase 27 U/L (12-78); Aspartate Amino Transferase 29 U/L (17-59); Bilirubin,Total 0.9 mg/dl (0.2-1.3); Blood Urea Nitrogen 15 mg/dl (9-20); Estimated Glomerular Filt Rate 65 ml/min (>60); GFR (African American) 78 ML/MIN (>60)
[2023-12-12 08:19] LABS: Albumin Level 4.3 g/dl (3.5-5.0); Alkaline Phosphatase 42 U/L (38-126); Anion Gap 8.2 mEq/L (5-15); Calcium 10.1 mg/dl (8.4-10.2); Carbon Dioxide 28 mmol/L (22.0-30.0); Chol/HDL Ratio 3.9 (1-3.5); Cholesterol 134 mg/dl (140-200); Globulin 2.2 g/dL (1.3-3.2); Glucose 108 mg/dl (74-100); HDL Cholesterol 34 mg/dl (40-60); Total Protein,Serum 6.5 g/dl (6.3-8.2); Triglycerides 111 mg/dl (30-150); VLDL Cholesterol 22 mg/dL (0-40)
[2023-12-12 08:30] LABS: Direct LDL Cholesterol 81.76 mg/dL (100-129)
[2023-12-12 08:49] LABS: Thyroid Stimulating Hormone 4.82 uIU/mL (0.465-4.68)
== END 2023-12-12 23:59 | disposition home or self-care (01) ==
LOC: LAB 07:24
PROVIDERS: PCP Internal Medicine; Visit Provider Internal Medicine
DX: E03.9 Hypothyroidism, unspecified (principal); I35.1 Nonrheumatic aortic (valve) insufficiency; E78.5 Hyperlipidemia, unspecified; I11.9 Hypertensive heart disease without heart failure
CPT/HCPCS: 36415; 80053; 80061; 84443; 85025

== ENCOUNTER 2023-12-24 08:16 | Day surgery (SDC) | payer MEDICARE, SELFPAY ==
[2023-12-24 08:24] VITALS: BP 145/71; PULSE 74; RESP 16; TEMP 36.4; O2SAT 97; BMI 27.5
[2023-12-24 08:47] VITALS: BP 127/68; PULSE 64; RESP 18; O2SAT 95
[2023-12-24] MEDS: methylPREDNISolone ACETATE 80MG/ML VIAL 80 MG (08:47)
--- NOTE | 2023-12-24 08:52 | P.PCN_ITS ---
Procedure Date: 12/24/23 Time: 08:40 Anesthesiologist:: Denver Harden CRNA Complications:: None Pre-procedure Diagnosis:: Degenerative disc lumbar spine multilevels. Lumbar radiculopathy. Post-procedure Diagnosis:: Same. Indications for Procedure:: Patient is a very pleasant 78-year-old male comes our clinic today for repeat lumbar epidural steroid injection at L5-S1 level. Patient reports minimal relief from an L4-5 epidural steroid injection in the last couple of months. He describes low back pain as constant, dull, aching. Bilateral hip and leg radicular symptoms. Right greater than left. Procedure Details:: Procedure: Lumbar epidural steroid injection under fluoroscopy Informed consent was obtained and the risks and benefits of the procedure were explained to the patient. The patient was taken to the procedure room and n oninvasive monitors placed, including noninvasive blood pressure cuff and pulse oximeter. The back was viewed using C-arm Fluoroscopy and prepped using Chloraprep as a cleansing solution and the L5-S1 interspace was palpated. Skin and subcutaneous tissues were anesthetized using lidocaine 1.5% and a 25-gauge needle. After this, an 18-gauge Touhy epidural needle was placed into the L5-S1 interspace and advanced using fluoroscopic guidance and loss of resistance to air until the epidural space was encountered. After confirmation of needle placement in the epidural space, with dye, a solution containing normal saline, 3 mL and Depo-Medrol 80 mg were incrementally injected into the lumbar epidural space. The patient tolerated the procedure well with no complications. The patient was observed in the Pain Clinic and then discharged home neurologically intact. Plan and Disposition:: Patient was discharged without incident.
[2023-12-24 08:54] VITALS: BP 131/65; PULSE 60; RESP 16; O2SAT 98
[2023-12-24 08:55] VITALS: BP 127/68; PULSE 64; RESP 18; O2SAT 95
== END 2023-12-24 08:55 | disposition home or self-care (01) ==
PROVIDERS: PCP Internal Medicine; Visit Provider Nurse Anesthetist, Certified Registered
DX: M51.16 Intervertebral disc disorders with radiculopathy, lumbar region (principal)
CPT/HCPCS: 62323; J1010

== ENCOUNTER 2024-01-20 08:16 | Outpatient (POV) | payer MEDICARE, SELFPAY ==
[2024-01-20 08:49] VITALS: BP 156/71; PULSE 61; RESP 18; O2SAT 97; BMI 26.9
--- NOTE | 2024-01-20 09:34 | EXP.PAIN.SOA ---
[facility] Disclaimer: The information contained in this section may have been updated after the patient was seen, as this information can be updated by other users. Medical History Cardiomyopathy CABG 22 years ago Family History Other No significant family history Social History Smoking Status: Never smoker second hand exposure: No alcohol intake: never substance use type: denies use current occupational status: retired Travel in the last 8 weeks: None household members: spouse housing: house PM Subjective & Objective Subjective Subjective:: Patient is a pleasant 78-year-old male who presents today for follow-up of lumbar epidural steroid injection L5-S1 on 12/24/2023. Today he states that he had at least 90% improvement and rates his pain a 2 out of 10. Patient denies any new trauma or injury. Patient does state that he heard from our office within the last few days and stated that they lumbar decompression was approved and he officially has the surgery date of February 06. Patient did have a lumbar epidural in the past with epidurogram that did show he was a beneficial candidate of this procedure. Patient states he does still want to proceed forward with this plan. His Stevan has been reviewed and is appropriate. Review of Systems: General: No recent weight changes, no fever, no sleep disturbances Respiratory: No cough, no shortness of air, no recurring pulmonary infections Cardiovascular/peripheral vascular: No chest pain, no palpitations, no edema, no shortness of breath Gastrointestinal: No new onset incontinence, normal bowel movements reported Genitourinary: No new onset incontinence Musculoskeletal: Low back pain Psychiatric: [Normal mood/affect] Neurological: [Denies weakness in extremities], [denies balance issues] Pain at rest (0-10 scale): 2 Objective Objective:: Physical Exam: General: Alert and oriented x3, no acute distress, pleasant and cooperative Lungs: Respirations even and unlabored, symmetrical chest expansion Eyes: PERRL Musculoskeletal: Flexion and extension of lumbar [spine] somewhat guarded secondary to pain, [antalgic gait noted] Neurological: Speech clear, no gross sensory deficit Has patient had previous pain injection?: Yes Percent improvement in pain since last injection: 90% Conservative treatment options previously tried: Home exercise plan Length of treatment: Longer than 6 weeks Meds Home Medications and Allergies Home Medications Medication Instructions Recorded Confirmed Type aspirin 81 mg tablet,delayed 81 mg PO DAILY 12/29/18 01/20/24 History release (Adult Low Dose Aspirin) atorvastatin 80 mg tablet 80 mg PO HS 06/28/21 01/20/24 History oxybutynin chloride 10 mg 10 mg PO DAILY 12/27/22 01/20/24 History tablet,extended release 24 hr doxycycline hyclate 100 mg capsule 100 mg PO BID #20 caps 12/09/23 01/20/24 Rx fenofibrate nanocrystallized 145 See Rx Instructions .Route 01/11/24 01/20/24 Rx mg tablet .COMPLEX #90 tabs levothyroxine 88 mcg tablet See Rx Instructions .Route 01/11/24 01/20/24 Rx .COMPLEX #90 tabs losartan 25 mg tablet See Rx Instructions .Route 01/11/24 01/20/24 Rx .COMPLEX #90 tabs New Prescriptions to Start Prescriptions: Allergies Allergy/AdvReac Type Severity Reaction Status Date / Time No Known Allergies Allergy Verified 12/09/23 16:11 Assessment and Plan *Assessment and plan (1) Lumbar radiculopathy: Status: Acute Category: Medical Code(s): M54.16 - Radiculopathy, lumbar region (2) Bilateral hip pain: Status: Acute Category: Medical Code(s): M25.551 - Pain in right hip; M25.552 - Pain in left hip (3) Degenerative disc disease, lumbar: Status: Acute Category: Medical Code(s): M51.36 - Other intervertebral disc degeneration, lumbar region (4) Lumbar spinal stenosis: Status: Acute Qualifiers: Neurogenic claudication status: with neurogenic claudication Qualified Code(s): M48.062 - Spinal stenosis, lumbar region with neurogenic claudication Category: Medical Code(s): M48.061 - Spinal stenosis, lumbar region without neurogenic claudication Plan I did review over the risk and benefits of the minimally invasive lumbar decompression procedure and the patient would like to proceed forward with this plan of care. Patient is not on any blood thinners. We will plan on seeing him back after this procedure for his 1 week postop visit. Patient did have significant improvement with this lumbar epidural and does not require any additional interventions at this time.
== END 2024-01-20 23:59 | disposition home or self-care (01) ==
LOC: SC.PAIN 08:16
PROVIDERS: PCP Internal Medicine; Visit Provider Nurse Practitioner Family
DX: M54.16 Radiculopathy, lumbar region (principal); M25.551 Pain in right hip; M25.552 Pain in left hip; M51.36 Other intervertebral disc degeneration, lumbar region; M48.062 Spinal stenosis, lumbar region with neurogenic claudication
CPT/HCPCS: 99212; G0463

== ENCOUNTER 2024-02-04 08:46 | Outpatient (CLI) | payer MEDICARE, SELFPAY ==
[2024-02-04 09:01] LABS: Basophils % 0.6 % (0.1-2.0); Eosinophils # 0.3 K/mm3 (0.0-0.4); Eosinophils % 5.9 % (0.1-12.0); Hematocrit 46.3 % (42.0-52.0); Hemoglobin 15.4 g/dL (14.1-18.0); Lymphocytes # 1.4 K/mm3 (0.7-4.5); Lymphocytes % 27.5 % (10-50); Mean Corpuscular HGB Conc 33.3 g/dL (31.8-35.4); Mean Corpuscular Hemoglobin 32.8 pg (27.0-31.2); Mean Corpuscular Volume 98.7 fl (80-94); Mean Platelet Volume 8.1 fl (7.4-10.4); Monocytes # 0.5 K/mm3 (0.1-1.0); Monocytes % 8.9 % (1.7-9.3); Neutrophils # 2.9 K/mm3 (1.8-7.8); Neutrophils % 57.1 % (37.0-80.0); Platelet Count 203 K/mm3 (142-424); Red Blood Count 4.69 M/mm3 (4.60-6.20); Red Cell Distribution Width 14.6 % (11.5-17.5)
[2024-02-04 09:38] LABS: Anion Gap 10.1 mEq/L (5-15); Blood Urea Nitrogen 17 mg/dl (9-20); Calcium 9.5 mg/dl (8.4-10.2); Carbon Dioxide 27 mmol/L (22.0-30.0); Chloride 108 mmol/L (98-107); Estimated Glomerular Filt Rate 81 ml/min (>60); GFR (African American) 98 ML/MIN (>60); Glucose 102 mg/dl (74-100); Potassium 4.1 mmoL/L (3.5-5.1); Sodium 141 mmol/L (136-145)
== END 2024-02-04 23:59 | disposition home or self-care (01) ==
LOC: LAB 08:47
PROVIDERS: PCP Internal Medicine; Visit Provider Anesthesiology
DX: Z01.818 Encounter for other preprocedural examination (principal)
CPT/HCPCS: 36415; 80048; 85025

== ENCOUNTER 2024-02-07 06:01 | Day surgery (SDC) | payer MEDICARE, SELFPAY ==
[2024-02-04 12:23] VITALS: BMI 26.9
[2024-02-07] MEDS: VANCOMYCIN/WATER FOR INJ (PEG) 1.5 GM/300 ML PIGGYBACK IV (06:33)
[2024-02-07] MEDS: LACTATED RINGERS 1000ML 1,000 ML 25 ML IV (06:33)
[2024-02-07 06:34] VITALS: BP 134/101; PULSE 52; RESP 18; TEMP 36.1; O2SAT 99
--- NOTE | 2024-02-07 07:07 | EXP.ANES.CKL ---
[facility] Disclaimer: The information contained in this section may have been updated after the patient was seen, as this information can be updated by other users. Medical History Cardiomyopathy Surgical History History of tonsillectomy Hx laparoscopic cholecystectomy Family History Sister Diabetes Family/Other No problems noted. Father Cancer Heart disease Other No significant family history Social History Smoking Status: Never smoker second hand exposure: No alcohol intake: never substance use type: denies use current occupational status: retired Travel in the last 8 weeks: None household members: spouse housing: house [facility] Anesthesia Checklist Patient Identification Patient Identification: Arm Band and Verbal (Name & ) Structural Data Admitted From: Home Planned Operative Procedure/s: Lumbar decompression Consent for Planned Operative Procedure(s) Verified: Yes Verified Documents: Surgical Consent NPO Status Verified Time NPO: 00:00 Additional verifications Anesthesia Reactions: No Hx Blood Transfusions: No Blood Transfusion Reaction: No Airway Assessment Mallampati Score:: Class III C-Spine Mobility Assessed: Yes TMJ Mobility Assessed: Yes Dentition: Good Dentition Neurological Assessment Level of Consciousness: Awake Hx Seizures: No Numbness or tingling in extremities: No Anesthesia Plan Anesthesia Risk discussed: Yes Anesthesia Plan: Verified ASA Class: III Anesthesia Type: MAC
[2024-02-07] MEDS: LIDOCAINE 1% W/EPI 1:100,000 20ML VIAL 40 ML (08:12)
[2024-02-07] MEDS: methylPREDNISolone ACETATE 80MG/ML VIAL 80 MG (08:12)
[2024-02-07 08:46] VITALS: BP 137/96; PULSE 44; RESP 18; TEMP 36.2; O2SAT 96
[2024-02-07 08:55] VITALS: BP 115/64; PULSE 62; RESP 18; O2SAT 94
--- NOTE | 2024-02-07 08:58 | ECG_ITS ---
APPROVED REPORT Exam: Resting ECG HR:60 bpm ECG Measurements Heart Rate 60 AXES IN 186 P 40 QRSd 89 QRS 37 QT 412 T 153 QTc [address] DEVIATION AND MODERATE T-WAVE ABNORMALITY, but no change since 2009 ABNORMAL ECG UNCONFIRMED REPORT Electronically signed by : Rbo Bernal MD 02/08/2024 08:34:56
[2024-02-07 09:05] VITALS: BP 118/81; PULSE 55; RESP 18; O2SAT 97
[2024-02-07 09:20] VITALS: BP 116/57; PULSE 59; RESP 18; O2SAT 98
[2024-02-07 09:55] VITALS: BP 134/80; PULSE 66; RESP 18; O2SAT 98
[2024-02-07] MEDS: IOPAMIDOL-200 (41%);10ML VIAL 20 ML IV (10:09)
--- NOTE | 2024-02-07 11:14 | EXP.OP.NOTE ---
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 MRI and epidurogram do indicate significant stenosis bilateral L3-L4 and L4-L5. He gets temporary relief with lumbar pleural steroid injections. This patient presents for minimally invasive lumbar decompression bilateral L3-4 and L4-5 today. Operative findings:: None Operative note:: Informed consent was obtained and the risk and benefits of the procedure was explained to the patient. The patient was taken to the operating room and placed prone on the procedure table. The patient was prepped and draped in sterile fashion. C-arm fluoroscopy was used to view the lumbar spine. The skin and subcutaneous tissues were anesthetized using lidocaine. A epidural needle was inserted and advanced into the L5-S1 interspace. After confirmation of needle placement in the epidural space, dye was injected in a contralateral oblique view. There was an epidurogram seen at L3-L4 and L4-L5. Significant stenosis was seen at L3-L4 and L4-L5. The skin and subcutaneous tissues again were anesthetized using lidocaine. An incision was made and a access trocar was inserted and advanced to contact at the superior aspect of the L4 lamina on the left side. And a contralateral oblique view the side was viewed. Using a bone rongeur and tissue sculptor we debulked bone from the L3-L4 and L4-L5 interspace on the left side. We then used the tissue sculptor to debulk ligament at the L3-L4 and L4-L5 interspace on the left side. We then moved over to the right side and debulked bone and ligament from L3-L4 and L4-L5 on the right side. There is opening of the stenosis at L3-L4 and L4-L5 bilaterally. The access trocar was removed. A total of 3 mL's of dye was used. There is good spread of dye above and below this level as well. We injected 80 mg Depo-Medrol through the epidural needle. The epidural needle was removed and dressings were placed. This encounter for exam is for normal comparison and control in a clinical research program Patient was taken to recovery in stable condition. Patient was discharged home neurologically intact and with good relief of pain symptoms. Plan and disposition: We will follow-up with this patient in 2 weeks. Will reevaluate symptoms at that time. Condition: stable Disposition: PACU Complications:: None
== END 2024-02-07 09:55 | disposition home or self-care (01) ==
PROVIDERS: PCP Internal Medicine; Visit Provider Anesthesiology
PROC: (CPT 0275T; principal; 2024-02-07 07:30)
DX: M48.062 Spinal stenosis, lumbar region with neurogenic claudication (principal); Z00.6 Encounter for examination for normal comparison and control in clinical research program; Z79.899 Other long term (current) drug therapy
CPT/HCPCS: 0275T; 93005; C1889; J1010; J7120; Q9966

== ENCOUNTER 2024-02-19 09:14 | Outpatient (POV) | payer MEDICARE, SELFPAY ==
[2024-02-19 10:05] VITALS: BP 135/69; PULSE 65; RESP 16; O2SAT 98; BMI 26.9
--- NOTE | 2024-02-19 11:11 | EXP.PAIN.SOA ---
[facility] Disclaimer: The information contained in this section may have been updated after the patient was seen, as this information can be updated by other users. Medical History Cardiomyopathy CABG 22 years ago Surgical History History of tonsillectomy Hx laparoscopic cholecystectomy Family History Sister Diabetes Family/Other No problems noted. Father Cancer Heart disease Other No significant family history Social History Smoking Status: Never smoker second hand exposure: No alcohol intake: never substance use type: denies use current occupational status: retired Travel in the last 8 weeks: None household members: spouse housing: house PM Subjective & Objective Subjective Subjective:: Patient is a pleasant 78-year-old male who presents today for 2-week postop of minimally invasive lumbar decompression of L3-L4 and L4-L5. Today he rates his pain a 2 out of 10. Patient states he feels like he has had at least 50% improvement following this procedure. He states that overall he is not having the back pain like when he was in has been able to increase his activity. Patient states that he has done anything from mowing the yard to working 8 straight hours in a row. Patient does state that previously he was only able to work for about 3-4 depending on the day and that he feels much more functional. Patient does state initially had a little bit of soreness and he has been having a little bit of hip pain but that it varies day-to-day and depends on if he is working more. Patient does state that overall it is still manageable. His Stevan has been reviewed and is appropriate. Review of Systems: General: No recent weight changes, no fever, no sleep disturbances Respiratory: No cough, no shortness of air, no recurring pulmonary infections Cardiovascular/peripheral vascular: No chest pain, no palpitations, no edema, no shortness of breath Gastrointestinal: No new onset incontinence, normal bowel movements reported Genitourinary: No new onset incontinence Musculoskeletal: Hip pain Psychiatric: [Normal mood/affect] Neurological: [Denies weakness in extremities], [denies balance issues] Pain at rest (0-10 scale): 2 Objective Objective:: Physical Exam: General: Alert and oriented x3, no acute distress, pleasant and cooperative Lungs: Respirations even and unlabored, symmetrical chest expansion Eyes: PERRL Musculoskeletal: Flexion and extension of bilateral hips somewhat guarded secondary to pain, [antalgic gait noted] Neurological: Speech clear, no gross sensory deficit Has patient had previous pain injection?: No Conservative treatment options previously tried: Home exercise plan Length of treatment: Longer than 6 weeks Meds Home Medications and Allergies Home Medications ?Medication ?Instructions ?Recorded ?Confirmed ?Type aspirin 81 mg tablet,delayed 81 mg PO DAILY 12/29/18 02/19/24 History release (Adult Low Dose Aspirin) atorvastatin 80 mg tablet 80 mg PO HS 06/28/21 02/19/24 History oxybutynin chloride 10 mg 10 mg PO DAILY 12/27/22 02/19/24 History tablet,extended release 24 hr fenofibrate nanocrystallized 145 See Rx Instructions .Route 01/11/24 02/19/24 Rx mg tablet .COMPLEX #90 tabs levothyroxine 88 mcg tablet See Rx Instructions .Route 01/11/24 02/19/24 Rx .COMPLEX #90 tabs losartan 25 mg tablet (Cozaar) See Rx Instructions .Route .COMPLEX 02/04/24 02/19/24 History New Prescriptions to Start Prescriptions: Allergies Allergy/AdvReac Type Severity Reaction Status Date / Time No Known Allergies Allergy Verified 02/13/24 08:59 Assessment and Plan *Assessment and plan (1) Degenerative disc disease, lumbar: Status: Acute Category: Medical Code(s): M51.36 - Other intervertebral disc degeneration, lumbar region (2) Bilateral hip pain: Status: Acute Category: Medical Code(s): M25.551 - Pain in right hip; M25.552 - Pain in left hip Plan Patient has had significant improvement following his lumbar decompression. I have discussed with the patient that I will send in a temporary dose of baclofen 5 mg 3 times daily as needed and provide 42 tablets. Patient will return to clinic in 1 month for reevaluation of symptoms and plan of care. Patient has been instructed to contact the clinic with any concerns before the next appointment. Dr. Velázquez has reviewed this note and agrees with this plan of care. This note was dictated using voice recognition software and make contain errors or omissions. All injections are used with Lidocaine or Bupivacaine and Depo Medrol.
== END 2024-02-19 23:59 | disposition home or self-care (01) ==
PROVIDERS: PCP Internal Medicine; Visit Provider Nurse Practitioner Family
DX: M51.36 Other intervertebral disc degeneration, lumbar region (principal); M25.551 Pain in right hip; M25.552 Pain in left hip
CPT/HCPCS: 99212; G0463

== ENCOUNTER 2024-06-15 14:15 | Emergency (ER) | payer MEDICARE, SELFPAY ==
--- NOTE | 2024-06-15 15:09 | ECG_ITS ---
APPROVED REPORT Exam: Resting ECG HR:73 bpm ECG Measurements Heart Rate 73 AXES CA 183 P 37 QRSd 76 QRS 62 QT 391 T 70 QTc [address] & T-WAVE ABNORMALITY CRITICAL TEST RESULT UNCONFIRMED REPORT Electronically signed by : AMBER MOSLEY, 06/16/2024 06:45:19
--- NOTE | 2024-06-15 15:15 | PC.NURSE ---
DR HICKS AT BEDSIDE
[2024-06-15 15:22] VITALS: BP 138/67; PULSE 36; RESP 18; TEMP 36.6; O2SAT 98; BMI 27.5
--- NOTE | 2024-06-15 15:23 | XR_ITS ---
PROCEDURE INFORMATION: Exam: XR Chest Exam date and time: 06/15/2024 3:26 PM Age: 79 years old Clinical indication: Other: Lightheadedness, arrhythmias TECHNIQUE: Imaging protocol: Radiologic exam of the chest. Views: 1 view. COMPARISON: CR XR SHOULDER LT MIN 2V 06/23/2021 3:32 PM FINDINGS: Lungs: No evidence of acute pulmonary disease or infiltrates Pleural spaces: No large effusion or pneumothorax. Heart/Mediastinum: Stable cardiac and mediastinal contours. Bones/joints: No evidence of acute osseous abnormalities within the visualized portions of the thoracic spine and ribs. Osseous structures appear appropriate for patient age. The patient is status post median sternotomy. IMPRESSION: No dense parenchymal consolidation, pleural effusion, or pneumothorax.
--- NOTE | 2024-06-15 15:28 | ED_ITS ---
Discharge Plan Disposition Patient Disposition: Home, Self-Care Chief Complaint: Arrhythmia/Palpitations Prescriptions Prescriptions: No Action oxybutynin chloride 10 mg tablet extended release 24hr 10 mg PO DAILY aspirin [Adult Low Dose Aspirin] 81 mg tablet,delayed release (DR/EC) 81 mg PO DAILY fenofibrate nanocrystallized 145 mg tablet See Rx Instructions .ROUTE .COMPLEX Qty: 90 1RF Dose Instruction: TAKE 1 TABLET DAILY Rx Instructions: TAKE 1 TABLET DAILY atorvastatin 80 mg tablet See Rx Instructions .ROUTE .COMPLEX Qty: 90 1RF Dose Instruction: TAKE 1 TABLET ONCE DAILY Rx Instructions: TAKE 1 TABLET ONCE DAILY levothyroxine 88 mcg tablet See Rx Instructions .ROUTE .COMPLEX Qty: 90 1RF Dose Instruction: TAKE 1 TABLET ONCE DAILY Rx Instructions: TAKE 1 TABLET ONCE DAILY losartan [Cozaar] 25 mg tablet See Rx Instructions .ROUTE .COMPLEX Rx Instructions: TAKE 1 TABLET ONCE DAILY baclofen 5 mg tablet 5 mg PO TID PRN (Reason: muscle spasm) Qty: 42 0RF Referrals Follow up/Referrals: Koko Castillo MD [Primary Care Provider] - See instructions Activity Restrictions/Add. Instructions Additional Instructions/Restrictions: Call your family doctor to establish care for this visit to the emergency department and schedule follow-up within 48 hours to ensure improvement. If you have any worsening of your condition or any other concerning signs or symptoms, return to the emergency department or your primary care doctor for further evaluation. Also follow-up with cardiology to figure out underlying cause of your slow heart rate and bigeminy. Clinical Impressions Clinical Impression: Pre-syncope Print Language Print Language: Greek Discharge ED Provider: Kameron Magaña General Adult HPI General Chief complaint: Arrhythmia/Palpitations Stated complaint: dizziness Time Seen by Provider: 06/15/24 15:12 History of Present Illness HPI narrative: Please note that above description of symptoms, in this electronic medical record under categorization of recalled from ER triage doctor by RN are reflective of an initial nursing assessment, however, is not reflective of my full history and physical exam that was personally taken and clarified. Consequentially, this preceding description of symptoms, which may include the patient's categorized chief complaint in the EMR, do not reflect my personal clinical impression, and the ultimate description of history of present illness and patient stated complaints should be deferred to this section of the note. Unless stated otherwise or congruent with this section of the note, additional signs, symptoms, or incongruence should be interpreted as inaccurate with my clinical impression. Related Data Home Medications ?Medication ?Instructions ?Recorded ?Confirmed aspirin 81 mg tablet,delayed 81 mg PO DAILY 12/29/18 02/19/24 release (Adult Low Dose Aspirin) oxybutynin chloride 10 mg 10 mg PO DAILY 12/27/22 02/19/24 tablet,extended release 24 hr losartan 25 mg tablet (Cozaar) See Rx Instructions .Route .COMPLEX 02/04/24 02/19/24 Previous Rx's ?Medication ?Instructions ?Recorded fenofibrate nanocrystallized 145 See Rx Instructions .Route 01/11/24 mg tablet .COMPLEX #90 tabs baclofen 5 mg tablet 5 mg PO TID PRN muscle spasm #42 02/19/24 tabs atorvastatin 80 mg tablet See Rx Instructions .Route 04/03/24 .COMPLEX #90 tabs levothyroxine 88 mcg tablet See Rx Instructions .Route 06/15/24 .COMPLEX #90 tabs Allergies Allergy/AdvReac Type Severity Reaction Status Date / Time No Known Allergies Allergy Verified 02/13/24 08:59 [facility] Disclaimer: The information contained in this section may have been updated after the patient was seen, as this information can be updated by other users. Medical History Cardiomyopathy CABG 22 years ago Surgical History History of tonsillectomy Hx laparoscopic cholecystectomy Family History Sister Diabetes Family/Other No problems noted. Father Cancer Heart disease Other No significant family history Social History Smoking Status: Never smoker second hand exposure: No alcohol intake: never substance use type: denies use current occupational status: retired Travel in the last 8 weeks: None household members: spouse housing: house Other Medical History Have you received the Flu Vaccine for this season: Yes Have you received the Pneumonia Vaccine: Yes ROS Obtained: Yes All systems reviewed & no additional complaints except as documented Physical Exam General General appearance: alert Head Head exam: atraumatic and normocephalic Eye Eye exam: Present normal appearance, PERRL and EOMI Neck Neck exam: Present normal inspection, full ROM and trachea midline Respiratory Respiratory exam: Present normal lung sounds bilaterally; Absent respiratory distress, wheezes, stridor, accessory muscle use or prolonged expiratory phase Cardiovascular Cardiovascular exam: Present regular rate, irregular rhythm (Bradycardic withIntermittent intermittent ectopic beats) and other (Pulses equal symmetric in upper and lower extremities) Abdominal Exam Abdominal exam: Present soft; Absent distention, tenderness or pulsatile mass Extremities Exam Extremities exam: Absent edema Neurological Exam Neurological exam: Present alert, oriented X3 and CN II-XII intact; Absent motor sensory deficit Skin Skin exam: Present warm and dry; Absent diaphoresis or erythema Medical Decision Making Medical Records Medical records reviewed: Yes I reviewed the patient's medical records. Screening: Per USPSTF and CDC recommendations, given the prevalence of disease in our region, it is our hospital?s policy to screen for HIV and viral Hepatitis for all patients aged 18 and over and those with ongoing risk factors. Stevan Inquiry Pt receiving controlled substance: No Stevan was queried for this patient: No Vital Signs: 06/15/24 15:22 06/15/24 15:30 06/15/24 16:01 Temperature 97.9 F Temperature Source Oral Pulse Rate 55 L 51 L Pulse Rate [Apical] 36 L Respiratory Rate 18 16 Blood Pressure 134/69 131/61 Blood Pressure [Right Arm] 138/67 Blood Pressure Mean 81 Blood Pressure Mean [Right Arm] 90 Blood Pressure Source [Right Arm] Automatic Cuff Blood Pressure Position [Right Arm] Sitting 02 Sat by Pulse Oximetry 98 97 96 Oxygen Delivery Method Room Air Room Air 06/15/24 16:31 Temperature Temperature Source Pulse Rate 45 L Pulse Rate [Apical] Respiratory Rate 15 Blood Pressure 111/92 H Blood Pressure [Right Arm] Blood Pressure Mean 97 Blood Pressure Mean [Right Arm] Blood Pressure Source [Right Arm] Blood Pressure Position [Right Arm] 02 Sat by Pulse Oximetry 97 Oxygen Delivery Method Lab Data Lab Results 06/15/24 15:35: WBC 6.8, RBC 4.80, Hgb 15.8, Hct 45.0, MCV 93.7, MCH 32.8 H, MCHC 35.1, RDW 14.1, Plt Count 220, MPV 7.6, Neut % (Auto) 58.5, Lymph % (Auto) 26.4, [place] % (Auto) 8.6, Eos % (Auto) 5.9, Baso % (Auto) 0.6, Neut # (Auto) 4.0, Lymph # (Auto) 1.8, [place] # (Auto) 0.6, Eos # (Auto) 0.4, Baso # (Auto) 0.0, PT 11.4, INR 1.02, APTT 25.4, D-Dimer 0.81 H, Sodium 140, Potassium 3.8, Chloride 109 H, Carbon Dioxide 24, Anion Gap 10.8, BUN 22 H, Creatinine 1.10, Estimated Creat Clear 76, Estimated GFR 64, Est GFR ( Amer) 78, Glucose 109 H, Calcium 9.7, Magnesium 2.2, Total Bilirubin 0.5, AST 42, ALT 29, Alkaline Phosphatase 40, Troponin I < 0.01, NT-Pro-B Natriuret Pep 272, Total Protein 6.4, Albumin 4.3, Globulin 2.1, Albumin/Globulin Ratio 2.0 H, TSH 4.36, Thyroxine (T4) 8.5 06/15/24 18:30: Troponin I < 0.01 06/15/24 15:35 06/15/24 15:35 Orders (Tests/Meds): ED MEDICATIONS Generic Name Dose Route Start Last Admin Trade Name Freq PRN Reason Stop Dose Admin Sodium Chloride 10 ml 06/15/24 17:09 06/15/24 17:10 Sodium Chloride 0.9% 10ml Syr (Rad Only) IV 07/15/24 17:08 10 ml NEEDED PRN Administration Maintain IV Site Discontinued Medications Generic Name Dose Route Start Last Admin Trade Name Freq PRN Reason Stop Dose Admin Iopamidol 70 ml 06/15/24 17:09 06/15/24 17:10 Iopamidol-370 (76%);100ml Bottle IV 06/15/24 17:10 70 ml ONCE ONE Administration Sodium Chloride 50 ml 06/15/24 17:09 06/15/24 17:10 0.9 % Sodium Chloride 50 Ml Vial IV 06/15/24 17:10 50 ml ONCE ONE Administration ORDERS Category Date Time Status CT angio chest PE protocol Stat Cat Scan 06/15/24 16:48 Completed XR chest portable Stat Exams 06/15/24 15:23 Completed Complete Blood Count Auto Diff Stat Lab 06/15/24 15:35 Completed Comprehensive Metabolic Panel Stat Lab 06/15/24 15:35 Completed D-Dimer Stat Lab 06/15/24 15:35 Completed HIV (1&2) Antibody Rapid Stat Lab 06/15/24 15:35 Received Hep C Ab with Reflex to RNA Stat Lab 06/15/24 15:35 Received Lyme Ab, Modified 2-Tier Stat Lab 06/15/24 15:35 Received Magnesium Stat Lab 06/15/24 15:35 Completed NT Pro Brain Natriuretic Pep. Stat Lab 06/15/24 15:35 Completed PT INR [Prothrombin Time INR] Stat Lab 06/15/24 15:35 Completed PTT [Activated Partial Thrombo Time] Stat Lab 06/15/24 15:35 Completed T4 (Thyroxine) Stat Lab 06/15/24 15:35 Completed TSH [Thyroid Stimulating Hormone] Stat Lab 06/15/24 15:35 Completed Troponin I Q3H Lab 06/15/24 18:30 Completed Troponin I Q3H Lab 06/15/24 21:30 Ordered Troponin I Stat Lab 06/15/24 15:35 Completed ECG holter initial pfn Routine Y 06/15/24 19:11 Completed Medical Decision Narrative: This is an 79 male with hypertension, hyperlipidemia, CAD status post CABG presenting with lightheadedness. Patient states that he has been feeling lightheaded since yesterday, 06/14. Woke up with the symptoms. States that he felt incredibly fatigued yesterday. Slept about 11 hours. Woke up today, every time he changed position and tried to walk around, felt lightheaded. No syncopal episodes. Just feeling presyncopal. No chest pain, shortness of breath more than usual, nausea, vomiting, vision changes, neurologic deficits. Denies any recent medication changes. History was obtained via conversation with patient and . On arrival, patient hemodynamically stable, alert, oriented x4, appropriate, GCS 15, moving all extremities spontaneously, pupils equal and reactive to light. Full physical exam performed and significant for bradycardic patient no acute distress. Speaking in full sentences. Alert, neuro intact. Cardiac exam with no murmurs, gallops, or rubs. Normal S1-S2. He does have bradycardic rhythm with intermittent ectopic beats. No lower extremity edema. Pulses equal in extremities.. Differential includes metabolic abnormality, endocrinologic abnormality, ACS, NH, CHF, iatrogenic, polypharmacy, infectious, postinfectious, among others. Patient placed on continuous cardiac monitoring and continuous pulse ox with initial blood pressure 138/67, heart rate 86, saturation 98% on room air. Independent interpretation of EKG shows sinus rhythm with PVCs and bigeminy. Overall rate 73 bpm. HI interval 183, QRS 76, QTc 417. Workup independently interpreted and significant for nonactionable CBC or chemistry. Coags normal. Dimer mildly elevated 0.81. Troponin and BNP negative. Thyroid studies normal. On independent interpretation of imaging, no acute cardiopulmonary airspace disease on chest x-ray. See radiology read for full review of final results. Given positive D-dimer, CT angiogram of the chest was ordered. On independent interpretation, no obvious PE, dissection, or other abnormality in the chest. Patient was placed in observation beginning at 3 PM in order to rule out evolving NH with delta troponins and determine need for admission versus home- going. The patient was provided serial exams, monitoring, labs, imaging while awaiting results. Further conversation with patient after review of results determines that patient does not want to be admitted, would rather follow-up outpatient if everything is normal. He also states that he is feeling a lot better just since being here in the emergency department despite no interventions. Repeat EKG was obtained. Sinus rhythm with PVCs, no longer in bigeminy. Ventricular rate 66 bpm. HI 187, QRS 86, QTc 425. Still with normal axis. No acute ischemic change. Independent interpretation of results demonstrated normal repeat troponin. On reevaluation, patient ready to go. At this time, I feel patient is appropriate for discharge. Total observation time 5 hours. Recommended close outpatient follow-up, he voiced his understanding. Monitor was placed here in the emergency department. Because patient at baseline without signs or symptoms of clinical decompensation, deemed appropriate for discharge. Results were relayed to patient who voiced understanding and were agreeable to outpatient management and follow up. I discussed my clinical impression with patient and answered all questions. At this time, the evidence for any other entities in the differential is insufficient to warrant any further testing or ED observation. This was explained as well. Advisory was given that persistent or worsening symptoms require further evaluation. I confirmed the understanding of this discussion. Lamp Shades Supervisor disclaimer Much of this encounter note is an electronic car storer spoken language to printed text. Electronic car storer of the spoken language may permit errors. Although I have reviewed the note, some errors may still exist. Critical Care Critical Care Time Critical Care Time: No
[2024-06-15 15:30] VITALS: BP 134/69; PULSE 55; O2SAT 97
--- NOTE | 2024-06-15 15:32 | PC.NURSE ---
XR AT BEDSIDE
[2024-06-15 15:44] LABS: Basophils % 0.6 % (0.1-2.0); Eosinophils # 0.4 K/mm3 (0.0-0.4); Eosinophils % 5.9 % (0.1-12.0); Hemoglobin 15.8 g/dL (14.1-18.0); Lymphocytes # 1.8 K/mm3 (0.7-4.5); Lymphocytes % 26.4 % (10-50); Mean Corpuscular HGB Conc 35.1 g/dL (31.8-35.4); Mean Corpuscular Hemoglobin 32.8 pg (27.0-31.2); Mean Corpuscular Volume 93.7 fl (80-94); Mean Platelet Volume 7.6 fl (7.4-10.4); Monocytes # 0.6 K/mm3 (0.1-1.0); Monocytes % 8.6 % (1.7-9.3); Neutrophils % 58.5 % (37.0-80.0); Platelet Count 220 K/mm3 (142-424); Red Cell Distribution Width 14.1 % (11.5-17.5); White Blood Count 6.8 K/mm3 (4.8-10.8)
[2024-06-15 15:56] LABS: Albumin Level 4.3 g/dl (3.5-5.0); Chloride 109 mmol/L (98-107)
[2024-06-15 15:57] LABS: Potassium 3.8 mmoL/L (3.5-5.1); Sodium 140 mmol/L (136-145)
[2024-06-15 15:59] LABS: Activated Partial Thrombo Time 25.4 seconds (22.8-30.6); Alanine Aminotransferase 29 U/L (12-78); Alkaline Phosphatase 40 U/L (38-126); Anion Gap 10.8 mEq/L (5-15); Aspartate Amino Transferase 42 U/L (17-59); Bilirubin,Total 0.5 mg/dl (0.2-1.3); Blood Urea Nitrogen 22 mg/dl (9-20); Carbon Dioxide 24 mmol/L (22.0-30.0); Creatinine Clearance Estimated 76 mL/min (50-200); Estimated Glomerular Filt Rate 64 ml/min (>60); GFR (African American) 78 ML/MIN (>60)
[2024-06-15 16:00] LABS: Calcium 9.7 mg/dl (8.4-10.2); Globulin 2.1 g/dL (1.3-3.2); Glucose 109 mg/dl (74-100); INR 1.02 (0.9-1.1); Magnesium 2.2 mg/dl (1.6-2.3); Prothrombin Time 11.4 seconds (10.1-12.5); Total Protein,Serum 6.4 g/dl (6.3-8.2)
[2024-06-15 16:01] VITALS: BP 131/61; PULSE 51; RESP 16; O2SAT 96
[2024-06-15 16:07] LABS: D-Dimer 0.81 ug/mL (0.0-0.5)
[2024-06-15 16:14] LABS: Troponin I < 0.01 ng/ml (0.00-0.034)
[2024-06-15 16:18] LABS: T4 (Thyroxine) 8.5 ug/dl (5.53-11.0)
[2024-06-15 16:31] VITALS: BP 111/92; PULSE 45; RESP 15; O2SAT 97
[2024-06-15 16:31] LABS: Thyroid Stimulating Hormone 4.36 uIU/mL (0.465-4.68)
--- NOTE | 2024-06-15 16:48 | CT_ITS ---
PROCEDURE INFORMATION: Exam: CTA Chest With Contrast Exam date and time: 06/15/2024 5:02 PM Age: 79 years old Clinical indication: Shortness of breath; Prior surgery; Surgery date: 6+ months; Surgery type: Open heart; Additional info: Elevatd dimer, new arrhythmia, SOA, presyncope TECHNIQUE: Imaging protocol: Computed tomographic angiography of the chest with contrast. Exam focused on the arteries. 3D rendering (Not supervised by radiologist): MIP and/or 3D reconstructed images were created by the technologist. Radiation optimization: All CT scans at this facility use at least one of these dose optimization techniques: automated exposure control; mA and/or kV adjustment per patient size (includes targeted exams where dose is matched to clinical indication); or iterative reconstruction. Contrast material: ISOVUE 370; Contrast volume: 70 ml; Contrast route: INTRAVENOUS (IV); COMPARISON: 1. CR XR CHEST PORTABLE 06/15/2024 3:26 PM 2. CR XR SHOULDER LT MIN 2V 06/23/2021 3:32 PM FINDINGS: Pulmonary arteries: There is no evidence for clinically relevant pulmonary arterial filling defect. Tiny distal filling defects may be present but are of dubious clinical significance. Aorta: There is atherosclerotic disease of the visualized aorta and its major branch vessels. Lungs: Scattered areas of bronchial wall thickening which are likely chronic inflammatory. A few areas of subpleural reticulation are noted, nonspecific. There are scattered areas of emphysema throughout the lungs. Pleural spaces: Unremarkable. No pneumothorax. No pleural effusion. Heart: Unremarkable. No cardiomegaly. No pericardial effusion. Coronary arteries: There is moderate coronary atherosclerotic disease/calcification although evaluation is limited secondary to the non gated nature of the study. Lymph nodes: Unremarkable. No enlarged lymph nodes. Spleen: There are multiple calcifications in the spleen most likely reflects small granulomas. Bones/joints: There is diffuse degenerative disease of the visualized osseous structures. The patient is status post median sternotomy. Soft tissues: Unremarkable. Other findings: Motion artifact mildly limits evaluation. IMPRESSION: No evidence for clinically relevant pulmonary arterial filling defect.
[2024-06-15] MEDS: 0.9 % SODIUM CHLORIDE 50 ML VIAL IV (17:10)
[2024-06-15] MEDS: SODIUM CHLORIDE 0.9% 10ML SYR (RAD ONLY) 10 ML IV (17:10)
[2024-06-15] MEDS: IOPAMIDOL-370 (76%);100ML BOTTLE 70 ML IV (17:10)
[2024-06-15 18:05] LABS: NT Pro Brain Natriuretic Pep. 272 pg/mL (0-450)
--- NOTE | 2024-06-15 18:53 | ECG_ITS ---
APPROVED REPORT Exam: Resting ECG HR:66 bpm ECG Measurements Heart Rate 66 AXES DE 187 P 32 QRSd 86 QRS 49 QT 412 T 65 QTc 425 Conclusion SINUS RHYTHM WITH FREQUENT VENTRICULAR PREMATURE COMPLEXES NONSPECIFIC ST & T-WAVE ABNORMALITY ABNORMAL RHYTHM ECG UNCONFIRMED REPORT Electronically signed by : AMBER MOSLEY, 06/16/2024 06:44:26
--- NOTE | 2024-06-15 19:04 | PC.NURSE ---
I notified respiratory that we will need a 48h halter monitor for the pt.
[2024-06-15 19:45] LABS: Troponin I < 0.01 ng/ml (0.00-0.034)
[2024-06-15 19:48] VITALS: BP 118/85; PULSE 41; O2SAT 96
[2024-06-15 19:53] VITALS: BP 118/85; PULSE 56; RESP 18; TEMP 36.6; O2SAT 98
[2024-06-15 20:13] LABS: HIV (1&2) Antibody Rapid NONREACTIVE (NONREACTIVE)
[2024-06-16 09:16] LABS: HCV Ab Non Reactive (Non Reactive)
[2024-06-16 14:13] LABS: Lyme Ab CIA Negative (Negative)
== END 2024-06-15 19:55 | disposition home or self-care (01) ==
LOC: UTC 14:19 → ER 15:04
PROVIDERS: Emergency Provider Emergency Medicine; PCP Internal Medicine
DX: R55 Syncope and collapse (principal); R00.2 Palpitations; R42 Dizziness and giddiness
CPT/HCPCS: 71045; 71275; 80053; 83735; 83880; 84436; 84443; 84484; 85025; 85378; 85610; 85730; 86618; 86803; 87389; 93005; 93225; 93227; 99285; Q9967

== ENCOUNTER 2024-06-19 15:22 | Outpatient (CLI) | payer MEDICARE, SELFPAY ==
[2024-06-19 16:21] LABS: Albumin Level 4.4 g/dl (3.5-5.0); Chloride 108 mmol/L (98-107); Potassium 4.3 mmoL/L (3.5-5.1); Sodium 141 mmol/L (136-145)
[2024-06-19 16:24] LABS: Alanine Aminotransferase 29 U/L (12-78); Albumin/Globulin Ratio 2.2 (1.1-1.8); Alkaline Phosphatase 36 U/L (38-126); Anion Gap 8.3 mEq/L (5-15); Aspartate Amino Transferase 39 U/L (17-59); Bilirubin,Total 0.6 mg/dl (0.2-1.3); Blood Urea Nitrogen 22 mg/dl (9-20); Carbon Dioxide 29 mmol/L (22.0-30.0); Cholesterol 115 mg/dl (140-200); Estimated Glomerular Filt Rate 58 ml/min (>60); GFR (African American) 70 ML/MIN (>60); Total Protein,Serum 6.4 g/dl (6.3-8.2); Triglycerides 162 mg/dl (30-150); VLDL Cholesterol 32 mg/dL (0-40)
[2024-06-19 16:25] LABS: Calcium 9.6 mg/dl (8.4-10.2); Glucose 128 mg/dl (74-100); HDL Cholesterol 29 mg/dl (40-60)
[2024-06-19 16:35] LABS: Direct LDL Cholesterol 63.68 mg/dL (100-129)
[2024-06-19 21:39] LABS: Prostate Specific Ag Screen 0.8 ng/ml (0.0-4.0)
== END 2024-06-19 23:59 | disposition home or self-care (01) ==
LOC: LAB 15:26
PROVIDERS: PCP Internal Medicine; Visit Provider Internal Medicine
DX: I25.10 Atherosclerotic heart disease of native coronary artery without angina pectoris (principal); E78.2 Mixed hyperlipidemia; I10 Essential (primary) hypertension; Z12.5 Encounter for screening for malignant neoplasm of prostate
CPT/HCPCS: 36415; 80053; 80061; G0103

== ENCOUNTER 2024-06-25 15:04 | Outpatient (CLI) | payer MEDICARE, SELFPAY ==
--- NOTE | 2024-06-25 15:16 | CA_ITS ---
APPROVED REPORT EXAM: Comprehensive 2D, Doppler, and color-flow Echocardiogram Measurement Superintendent: Lanie Mart CRT Ht: 6 ft 3 in Wt: 222lbs BSA: 2.29 BP: 114/84 mmHg Indications: PRE-OP CATH AND PACER VS AICD, Abnormal ECG, Shortness of Breath, Atrial Fibrillation, CAD, Hyperlipidemia, Cardiomyopathy, Tachybrady syndrome 2D Dimensions LA Volume 63.10 mL LA Volume Index 26.90 mL/m2 (M/F) 16-34 M-Mode Dimensions RVDd 2.69 cm (0.9-2.6) LA Diam 3.72 cm (1.9-4.0) LVDd 5.24 cm (3.5-5.7) LVDs 4.17 cm (3.5-5.7) IVSd 1.76 cm (0.6-1.1) PWd 0.76 cm (0.6-1.1) EF (Teich) 41.40% FS 20.40% EDV (Teich) 131.80 mL TAPSE 1.21 (<1.7) ESV (Teich) 77.30 mL LV Diastology E Decel Time 240 (160-240 msec) E/A Ratio 3.13 MED A' 5.40 cm/s LAT A' 3.90 cm/s Aortic Valve AO Peak GR. 3.90 mmHg Mitral Valve MV E Max Leonardo. 69.0 (40-130 cm/s) MV A Velocity 22.0 (40-130 cm/s) E/A Ratio 3.13 MV PHT 70.0 ms Pulmonary Valve PV Peak Velocity 82.0 (50-150 cm/s) Tricuspid Valve TR P. Velocity 220.00 cm/s RAP Estimate 10.00 mmHg RVSP 29.40 mmHg Left Ventricle The left ventricle is normal size. The left ventricular systolic function is low normal. There is increased LV wall thickness. There is mild hypokinesis of the inferior, lateral, and inferolateral LV viera. Diastolic function is indeterminate. LVEF is 50%. Right Ventricle Right ventricle is mildly dilated. The right ventricular systolic function is normal. Atria The left atrium is mildly dilated. The right atrium size is normal. There is no Doppler evidence of interatrial shunt. Aortic Valve The aortic valve is mildly thickened. There is no aortic valvular stenosis. Trace aortic regurgitation. Mitral Valve The mitral valve is mildly thickened. No evidence of mitral valve stenosis. Trace mitral regurgitation. Tricuspid Valve Tricuspid valve is grossly normal in structure and function. Trace tricuspid regurgitation. There is insufficient TR jet to estimate RVSP. Pulmonic Valve The pulmonary valve is normal in structure. Trace pulmonic regurgitation. Great Vessels The aortic root is normal in size. The ascending aorta is not well-visualized. IVC is normal in size and collapses >50% with inspiration. Pericardium There is no pericardial effusion. Other Information Study Quality: Technically Difficult Conclusion Technically difficult study due to poor acoustic windows. Low normal LV systolic function (LVEF 50%). Mild hypokinesis of the inferior, lateral, and inferolateral LV viera. Mild RV dilation with normal RV function. Mild LA dilation. No significant valvular stenosis or regurgitation. Electronically signed by : Purvi Mathews MD 06/25/2024 23:27:09
== END 2024-06-25 23:59 | disposition home or self-care (01) ==
LOC: RT 15:05
PROVIDERS: PCP Internal Medicine; Visit Provider Physician Assistant
DX: I35.1 Nonrheumatic aortic (valve) insufficiency (principal); I51.89 Other ill-defined heart diseases; Z95.1 Presence of aortocoronary bypass graft; R00.1 Bradycardia, unspecified; I48.91 Unspecified atrial fibrillation; I25.10 Atherosclerotic heart disease of native coronary artery without angina pectoris; R06.02 Shortness of breath
CPT/HCPCS: 93306

== ENCOUNTER 2024-06-29 07:58 | Day surgery (SDC) | payer MEDICARE, SELFPAY ==
[2024-06-29] VITALS (10 sets, daily range): BP systolic 107–169; BP diastolic 46–93; PULSE 56–76; RESP 18–20; O2SAT 96–100; BMI 27.7
--- NOTE | 2024-06-29 07:28 | IR_ITS ---
APPROVED REPORT Patient Location: Outpatient PROCEDURES Left heart catheterization Left ventriculogram selective coronary angiogram Selective engagement of the left internal mammary artery to the LAD Drug-eluting stent deployment to the large first diagonal artery Drug-eluting stent deployment to the ostial left main artery extending into the proximal LAD INDICATION Angina pectoris, New onset cardiomyopathy, Coronary artery disease, History of coronary bypass surgery Informed consent was obtained prior to the procedure. COMPLICATIONS NONE Estimated Blood Loss: LESS THAN 10 ML TECHNIQUE One percent lidocaine used to anesthetize the right groin. The right femoral artery was accessed via the Seldinger technique and a 5 Beninese sheath was placed in the right femoral artery. A JL 4, JR4 catheter were used to perform selective coronary angiography as well as left internal mammary artery. At the end the diagnostic angiogram therapeutic heparin was administered giving a therapeutic ACT and the 5 Beninese sheath exchanged for a 6 Beninese sheath. The JL 4 guide catheter was placed in left main artery followed by Choice PT extra-support wire placed down the diagonal artery. A 1.5 mm x 15 mm balloon was placed with the assistance of a guide liner in the diagonal artery and deployed at 15 javy. An additional 2.5 x 20 mm compliant balloon was then placed in the same area and deployed at 15 javy further reducing the stenosis. Following this a 2.5 x 38 mm Gabriele frontier stent was placed in the diagonal artery extending back into the LAD and deployed at 18 javy. An additional 3 mm x 12 mm noncompliant balloon was deployed at 22 javy in the proximal diagonal artery and LAD further reducing the calcified stenosis. A 3.5 x 26 mm Newton frontier stent was placed on the left main artery extending into the proximal LAD and deployed at 24 javy further reducing the LAD and left main stenosis to 0%. NICOLE-3 flow was present before and after the procedure. At the end the procedure the apparatus was removed the groin is reprepped closure change sheath was removed and hemostasis was achieved using Perclose device patient was transferred to the postop holding area in stable condition ANGIOGRAPHIC RESULTS The left main artery Has an ostial 50% stenosis The left anterior descending artery Has proximal 40% followed by concentric 90% calcified stenosis. It gives rise to an 90% stenosed large first diagonal artery. The LAD is then occluded after the diagonal artery The circumflex artery Is nondominant and patent giving rise to a solitary obtuse marginal artery which is medium in size and widely patent The right coronary artery Large and dominant and has mid vessel tandem 40% stenoses with distal 20 and 30% stenosis The NELSON ventriculogram reveals Reduced to 35% The left ventricular end-diastolic pressure 10 mmHg AMATO to LAD widely patent IMPRESSION Moderate and severe disease through the left main artery LAD and proximal diagonal artery all of which is unbypassed to a large first diagonal artery Successful reconstruction of the left main artery and proximal LAD extending into a large first diagonal artery with critical disease reduced to less than 10% with 2 contiguous drug-eluting stents Persistent moderate disease in his dominant right coronary artery New onset cardiomyopathy PLAN 1. Dual antiplatelet therapy 2. Recommend cardiac MRI. Although the diagonal artery is large still does not account for the decrease in ejection fraction as seen by NELSON ventriculogram 3. Standard therapy for systolic heart failure 4. Cardiac rehabilitation 5. Avoidance of tobacco products 6. LDL less than 55 achieved with high intensity statin Electronically signed by : Cesar Siddiqi MD 06/29/2024 12:49:39
[2024-06-29 08:32] LABS: Chloride 106 mmol/L (98-107); Sodium 137 mmol/L (136-145)
[2024-06-29 08:33] LABS: Potassium 4.4 mmoL/L (3.5-5.1)
[2024-06-29 08:36] LABS: Anion Gap 5.4 mEq/L (5-15); Blood Urea Nitrogen 22 mg/dl (9-20); Carbon Dioxide 30 mmol/L (22.0-30.0); Creatinine Clearance Estimated 76 mL/min (50-200); Estimated Glomerular Filt Rate 64 ml/min (>60); GFR (African American) 78 ML/MIN (>60); Glucose 105 mg/dl (74-100)
[2024-06-29 09:00] LABS: Basophils % 0.5 % (0.1-2.0); Eosinophils % 6.4 % (0.1-12.0); Hematocrit 48.1 % (42.0-52.0); Hemoglobin 16.3 g/dL (14.1-18.0); Lymphocytes # 1.8 K/mm3 (0.7-4.5); Mean Corpuscular HGB Conc 33.9 g/dL (31.8-35.4); Mean Corpuscular Hemoglobin 31.7 pg (27.0-31.2); Mean Corpuscular Volume 93.6 fl (80-94); Mean Platelet Volume 9.8 fl (7.4-10.4); Monocytes % 10.1 % (1.7-9.3); Neutrophils # 3.1 K/mm3 (1.8-7.8); Neutrophils % 52.7 % (37.0-80.0); Platelet Count 224 K/mm3 (142-424); Red Blood Count 5.14 M/mm3 (4.60-6.20); Red Cell Distribution Width 13.4 % (11.5-17.5); White Blood Count 5.9 K/mm3 (4.8-10.8)
[2024-06-29 09:01] LABS: Eosinophils # 0.4 K/mm3 (0.0-0.4); Monocytes # 0.6 K/mm3 (0.1-1.0)
[2024-06-29] MEDS: LIDOCAINE 1% 10ML MDV 20 ML IJ (10:30)
[2024-06-29] MEDS: diphenhydrAMINE 50MG/ML VIAL 50 MG IV (10:30)
[2024-06-29] MEDS: FENTANYL 100MCG/2ML VIAL 50 MCG IV (10:31)
[2024-06-29] MEDS: 0.9 % SODIUM CHLORIDE 500 ML 25 ML IV (10:31)
[2024-06-29] MEDS: MIDAZOLAM HCL 1MG/ML 5ML VIAL 1 MG IV (10:31)
[2024-06-29] MEDS: HEPARIN 1,000 UNITS/500ML NS (CATH LAB) 3000 UNIT IV (10:32)
[2024-06-29] MEDS: HEPARIN 1,000 UNITS/ML 10ML VIAL (CATH LAB) 10000 UNIT IV (10:53)
[2024-06-29] MEDS: PROPOFOL 10MG/ML 20ML VIAL 60 MG IV (11:16)
[2024-06-29] MEDS: CLOPIDOGREL 300MG TABLET 600 MG PO (11:41)
[2024-06-29] MEDS: IOPAMIDOL-370 (76%);100ML BOTTLE 170 ML IV (13:16)
[2024-06-29 13:17] LABS: CATHL Activated Clotting Time 362 SEC (74-125)
== END 2024-06-29 14:30 | disposition home or self-care (01) ==
PROVIDERS: PCP Internal Medicine; Visit Provider Internal Medicine
DX: I25.118 Atherosclerotic heart disease of native coronary artery with other forms of angina pectoris (principal); I42.9 Cardiomyopathy, unspecified; I77.1 Stricture of artery; I48.91 Unspecified atrial fibrillation; Z95.1 Presence of aortocoronary bypass graft; Z79.01 Long term (current) use of anticoagulants; Z79.899 Other long term (current) drug therapy
CPT/HCPCS: 80048; 85025; 85347; 92928; 93459; 99152; 99153; C1725; C1760; C1769; C1874; C1894; C9600; J1200; J1644; J2250; J3010; Q9967

== ENCOUNTER 2024-07-02 09:12 | Outpatient (CLI) | payer MEDICARE, SELFPAY ==
[2024-07-02 10:06] LABS: Hematocrit 44.6 % (42.0-52.0); Hemoglobin 15.1 g/dL (14.1-18.0); Red Blood Count 4.76 M/mm3 (4.60-6.20); White Blood Count 6.2 K/mm3 (4.8-10.8)
[2024-07-02 10:07] LABS: Basophils % 0.3 % (0.1-2.0); Eosinophils # 0.4 K/mm3 (0.0-0.4); Eosinophils % 6.1 % (0.1-12.0); Lymphocytes # 2.2 K/mm3 (0.7-4.5); Lymphocytes % 35.2 % (10-50); Mean Corpuscular HGB Conc 33.9 g/dL (31.8-35.4); Mean Corpuscular Hemoglobin 31.7 pg (27.0-31.2); Mean Corpuscular Volume 93.7 fl (80-94); Mean Platelet Volume 9.9 fl (7.4-10.4); Monocytes # 0.6 K/mm3 (0.1-1.0); Monocytes % 10.2 % (1.7-9.3); Platelet Count 212 K/mm3 (142-424); Red Cell Distribution Width 13.7 % (11.5-17.5)
[2024-07-02 11:46] LABS: Chloride 107 mmol/L (98-107)
[2024-07-02 11:47] LABS: Potassium 4.5 mmoL/L (3.5-5.1); Sodium 136 mmol/L (136-145)
[2024-07-02 11:50] LABS: Anion Gap 7.5 mEq/L (5-15); Blood Urea Nitrogen 22 mg/dl (9-20); Calcium 9.6 mg/dl (8.4-10.2); Carbon Dioxide 26 mmol/L (22.0-30.0); Estimated Glomerular Filt Rate 64 ml/min (>60); GFR (African American) 78 ML/MIN (>60); Glucose 100 mg/dl (74-100)
== END 2024-07-02 23:59 | disposition home or self-care (01) ==
LOC: LAB 09:14
PROVIDERS: PCP Internal Medicine; Visit Provider Internal Medicine
DX: Z79.01 Long term (current) use of anticoagulants (principal); Z95.5 Presence of coronary angioplasty implant and graft
CPT/HCPCS: 36415; 80048; 85025

== ENCOUNTER 2024-07-07 08:17 | Outpatient (CLI) | payer MEDICARE, SELFPAY | END 2024-07-07 23:59 | disposition home or self-care (01) | LOC: RT 08:19 | PROVIDERS: PCP Internal Medicine; Visit Provider Nurse Practitioner | DX: R00.1 Bradycardia, unspecified (principal); I48.91 Unspecified atrial fibrillation | CPT/HCPCS: 93270 ==

== ENCOUNTER 2024-11-24 08:11 | Outpatient (CLI) | payer MEDICARE, SELFPAY ==
--- OUTSIDE RECORDS SUMMARY | 2024-11-24 08:14 | XMS_ITS | Continuity of Care Document ---
Author Organization [facility] Miroslava resendiz [facility] Address [address] [place] [address] Care Team Providers Care Orthotics Prosthetics Assistant Name Role Phone LEIDA FLOWERS Primary Care Provider Assessment Encounter Date Assessment Date Assessment LastModified by Organization Details LastModified Time 10/29/2024 10/29/2024 79-year-old male with a history of benign prostatic hypertrophy presenting with urinary urgency. Oxybutynin efficacy decreased. Recommending alfuzosin for enhanced control. Previous hematuria evaluation negative post-cystoscopy . Considering further diagnostic imaging. Hematuria: Order urine cytology and CT scan. Ensure thorough assessment of hematuria given negative cystoscopy history. [email or web address] Not available 10/29/2024 11:48:01 Plan of Treatment Reminders Order Date Submit Date Provider Last Modified By Organization Details Last Modified Time Details Appointments None recorded. Lab urinalysis panel, auto 2024 025 [facility], [address] [facility], [address], [place], [address], 11:44:50 cytology, non-gyneco logical, unspecifie d specimen 2024 025 [facility], [facility] [place], [address], 13:05:43 Referral None recorded. Procedures None recorded. Surgeries None recorded. Imaging CT, abdomen + pelvis, w/wo contrast 2024 025 [facility], [address] [facility], [place], [address], 14:09:21 Medication Orders alfuzosin ER 10 mg tablet,ext ended release 24 hr 2024 025 [facility], [facility], [place], [address], 11:44:59 Patient TargetsNo targets recorded. Patient Instructions Encounter Date Encounter Id Patient Instructions Last Modified By Organization Details Last Modified Time 10/29/2024 [id number] - Take alfuzosin as prescribed along with oxybutynin. - Report any changes in symptoms or side effects. - Complete urine cytology test as discussed. - Schedule CT scan as recommended for further evaluation. - Seek immediate care if experiencing significant blood in urine or worsening symptoms. [email or web address] Not available 10/29/2024 11:48:03 Reason for Referral None Reported. Results Created Date Observation Date Name Description Value Unit Range Abnormal Flag Note LastModifiedBy Organization Detail LastModifiedTime 10/30/1910/29/2024 urina lysis panel , auto Unknown Analyte Clean Catch Not Available [facility] [address], [address], 10/29/2024 11:31:55 10/30/1910/29/2024 urina lysis panel , auto Unknown Analyte Yellow Not Available [facility] [address], [place], [address], 10/29/2024 11:31:55 10/30/1910/29/2024 urina lysis panel , auto Unknown Analyte Clear Not Available [facility] [address], [place], [address], 10/29/2024 11:31:55 10/30/19 25 10/29/2024 urina lysis panel , auto Unknown Analyte 1.010 Not Available [facility] [address], [place], [address], 10/29/2024 11:31:55 10/30/19 25 10/29/2024 urina lysis panel , auto Unknown Analyte 1.003 - 1.030 Not Available [facility] [address], [place], [address], 10/29/2024 11:31:55 10/30/19 25 10/29/2024 urina lysis panel , auto Unknown Analyte 8.0 Not Available [facility] [address] [place] [address] [address], [place], [address], 10/29/2024 11:31:55 10/30/19 25 10/29/2024 urina lysis panel , auto Unknown Analyte 5.0 - 8.0 Not Available [facility] [address], [place], [address], 10/29/2024 11:31:55 10/30/19 25 10/29/2024 urina lysis panel , auto Unknown Analyte 75 Conrado/uL Not Available [facility] [address], [place], [address], 10/29/2024 11:31:55 10/30/19 25 10/29/2024 urina lysis panel , auto Unknown Analyte Negati ve Not Available [facility] [address], [place], [address], 10/29/2024 11:31:55 10/30/19 25 10/29/2024 urina lysis panel , auto Unknown Analyte Negati ve Not Available [facility] [address], [place], [address], 10/29/2024 11:31:55 10/30/19 25 10/29/2024 urina lysis panel , auto Unknown Analyte Negati ve Not Available [facility] [address], [place], [address], 10/29/2024 11:31:55 10/30/19 25 10/29/2024 urina lysis panel , auto Unknown Analyte Negati ve Not Available [facility] [address], [place], [address], 10/29/2024 11:31:55 10/30/19 25 10/29/2024 urina lysis panel , auto Unknown Analyte Negati ve Not Available [facility] [address], [place], [address], 10/29/2024 11:31:55 10/30/19 25 10/29/2024 urina lysis panel , auto Unknown Analyte Normal Not Available [facility] [address], [place], [address], 10/29/2024 11:31:55 10/30/19 25 10/29/2024 urina lysis panel , auto Unknown Analyte Normal Not Available [facility] [address], [place], [address], 10/29/2024 11:31:55 10/30/19 25 10/29/2024 urina lysis panel , auto Unknown Analyte Negati ve Not Available [facility] [address], [place], [address], 10/29/2024 11:31:55 10/30/19 25 10/29/2024 urina lysis panel , auto Unknown Analyte Negati ve Not Available [facility] [address], [place], [address], 10/29/2024 11:31:55 10/30/19 25 10/29/2024 urina lysis panel , auto Unknown Analyte Normal Not Available [facility] [address], [place], [address], 10/29/2024 11:31:55 10/30/19 25 10/29/2024 urina lysis panel , auto Unknown Analyte Normal Not Available [facility] [address], [place], [address], 10/29/2024 11:31:55 10/30/19 25 10/29/2024 urina lysis panel , auto Unknown Analyte Negati ve Not Available [facility] [address], [place], [address], 10/29/2024 11:31:55 10/30/19 25 10/29/2024 urina lysis panel , auto Unknown Analyte Negati ve Not Available [facility] [address], [place], [address], 10/29/2024 11:31:55 10/30/19 25 10/29/2024 urina lysis panel , auto Unknown Analyte 50 Russell/uL Not Available [facility] [address], [place], [address], 10/29/2024 11:31:55 10/30/19 25 10/29/2024 urina lysis panel , auto Unknown Analyte Negati ve Not Available [facility] [address] [facility] [address], [place], [address], 10/29/2024 11:31:55 11/06/19 25 11/05/2024 CT, abdom en + pelvi s, w/wo contr ast [facility] [address] [place] [address] Patien t Name: JOSEFINA PEDERSEN Patien t : 944 Patien t 0 Orderi ng Provid er: AKILA SMITH EXAM DATE: 2024 EXAM: CT ABD/PE LVIS W/WO CONTRA ST CLINIC AL INFORM ATION: Incont inence TECHNI QUE: A baseli ne serum creati nine with eGFR was obtain ed prior to inject ion of contra st medium due to the patien ts risk factor s for SALINA. Calcul ated eGFR at time of exam was [address] images of the abdome n were obtain ed before and in the combin ed nephro graphi c and excret ory phases after a split inject ion of 100 mL Omnipa que 350 (1 x 100 mL bottle of [facility] 12815- 1414-9 1). None was wasted and discar ded. No oral contra st or water was admini stered to the patien t. CT IVP images were create d on a 3D workst ation. COMPAR SUZIE: None. FINDIN GS ON CT ABDOME N: LOWER THORAX : Lung bases are clear. No obviou s cardia c abnorm ality. URINAR Y TRACT: Both kidney s are normal in locati on, size, shape, outlin e and parenc hymal thickn ess. Puncta te nonobs tructi ve stone noted in the right kidney . There is a 1 cm stone in the left renal pelvis , 8-12 100. No signif icant obstru ctive uropat hy.. Nephro graphi c phase shows normal parenc hymal enhanc ement bilate rally withou t delay. Subcen timete r cyst involv ing the top of the left kidney .. Excret ory phase shows adequa te opacif icatio n of collec ting system s and ureter s withou t dilata tion or fillin g defect . Urinar y bladde r is normal in outlin e and wall thickn ess withou t fillin g defect or mass. OTHER UPPER ABDOMI NAL ORGANS : Liver, spleen , pancre as, and adrena ls are normal . The gallbl adder is surgic ally absent . BOWEL AND MESENT RUSSELL: Stomac h, small bowel and colon are normal . No mesent manjinder lympha denopa thy or perito jose juan free fluid. RETROP ERITON EUM: Aorta, IVC and their branch es are patent and normal . No retrop eriton eal lympha denopa thy. ABDOMI NAL WALL AND SKELET AL STRUCT URES: Normal . FINDIN GS ON CT PELVIS : PELVIC CAVITY : Urinar y bladde r and rectos igmoid are normal . The prosta te is mildly enlarg ed with coarse calcif icatio ns. No pelvic or inguin al lympha denopa thy, mass or fluid. MUSCUL OSKELE MARCUS STRUCT URES: Normal . COMBIN ED IMPRES JUAN MANUEL: Bilate ral renal stones includ ing a sizabl e stone in the left renal pelvis . No signif icant obstru ctive uropat hy Interp reted By: Rodriguez Victoria MD Electr onical ly Signed By: Rodriguez Victoria MD on 11/06/19 25 2:04 PM [email or web address] [facility] [address] [place] [address], [place], [address], 11/08/2024 14:48:59 Result Notes None recorded. 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 Medical Equipment None Reported. Allergies No known drug allergies Medications Name Sig Start Date Stop Date Status Note LastModified by Organization Details LastModified Time atorvastatin 80 mg tablet Take 1 tablet every day by oral route. active Not Available Not Available No t Available oxybutynin chloride ER 10 mg tablet,extend ed release 24 hr Take 1 tablet every day by oral route. 2023 active Not Available Not Available Not Avai lable aspirin 325 mg tablet Daily active Duratio n: 30 days;Fr equency : daily;M edicati on Descrip tion: aspirin ; Dosage: 1; Route:o ral; refills :0; Quantit y:30 tablet Not Available Not Available Not Available Plavix 75 mg tablet Take 1 tablet every day by oral route. active Not Available Not Available No t Available Mobic 15 mg tablet As needed 2013 active Instruc tions: for low back pain;Fr equency : prn;Med ication Descrip tion: meloxic am; Dosage: 1; Route:o ral; refills :1; Quantit y:90 tablet Not Available Not Available Not Available Levoxyl 25 mcg tablet Daily active Duratio n: 30 days;Fr equency : daily;M edicati on Descrip tion: levothy roxine; Dosage: 1; Route:o ral; refills :0; Quantit y:30 tablet Not Available Not Available Not Available tamsulosin 0.4 mg capsule Take 1 capsule every day by oral route. 2022 active Not Available Not Available Not Avai lable simvastatin 20 mg tablet Daily 2014 active Duratio n: 90 days;Fr equency : daily;A lt Frequen cy: as direct. ;Medica tion Descrip tion: simvast atin; Dosage: 1; Route:o ral; refills :1; Quantit y:90 tablet Not Available Not Available Not Available losartan 25 mg tablet Take 1 tablet every day by oral route. active Not Available Not Available No t Available alfuzosin ER 10 mg tablet,extend ed release 24 hr Take 1 tablet every day by oral route. 2024 active Not Available Not Available Not Avai lable Tricor 145 mg tablet Daily 2014 active Duratio n: 90 days;Fr equency : daily;A lt Frequen cy: as direct. ;Medica tion Descrip tion: fenofib rate; Dosage: 1; Route:o ral; refills :1; Quantit y:90 tablet Not Available Not Available Not Available metoprolol succinate active Not Available Not Available No t Available Metamucil Daily active Frequen cy: daily;M edicati on Descrip tion: psylliu m; Route:o ral; refills :0 Not Available Not Available Not Available fenofibrate active Not Available Not A vailable Not Available Eliquis 5 mg tablet Take 1 tablet twice a day by oral route. active Not Available Not Available No t Available Vitals Date Recorded Body height Body mass index (BMI) Body weight Provider Name and Address Organization Details Last Updated DateTime 10/29/2024 190.5 cm 27.5 kg/m2 13850.32 g [facility] 10/29/2024 11:25:24 Social History Question Answer Notes LastModified by Organizat ion Details LastModified Time What Was The Date Of Your Most Recent Tobacco Screening? 11/16/2024 [email or web address] Information not available 11/16/2024 Sex: Male Functional Status None recorded. Mental Status None recorded. Family History Nothing Reported. Medical History No medical history recorded. Past Encounters Encounter ID Performer Location Encounter Start Date Encounter Closed Date Diagnosis/Indication Diagnosis SNOMED-CT Code Diagnosis ICD10 Code Diagnosis Note [id number] AKILA TAN JR, MD [facility] [address] [place] [address] 10/29/2024 10:48:13 10/29/2024 11:51:58 Lower urinary tract symptoms due to benign prostatic hypertrophy 8751749412 9101 N40.1 Start alfuzosin with oxybutynin to improve symptoms. Monitor for response and consider surgery if needed. Blood in urine 69606622 R31.9 Health Concerns Section Related Observation LastModified by Organization Detai ls LastModified Time None Recorded Concern Status LastModified by Organization Details LastModified Time None Recorded Payers Encounter Date Sequence Insurance Name Policy Number Policy Khanna Covered Member ID Khanna Member ID Guarantor Name 10/29/2024 2 [employer] (MEDICARE SUPPLEMENT) Hang Pedersen [id number] Hang Pedersen 10/29/2024 1 [place]ICARE[place] Hang Pedersen [id number] Hang Pedersen Notes Date Note Type Note Provider Name and Address Organization Details Recorded Time 10/29/2024 text/html The patient is a n 79-year-old male presenting with urgency and frequency of urination. Oxybutynin 10 mg had initially improved symptoms but now shows reduced effectiveness. Urinary urgency significantly impacts daily life, nearly causing incontinence at a ballgame. Tamsulosin trial was unsuccessful. Patient also experiencing intermittent hematuria over the past year, with symptom onset yesterday. Prior cystoscopy by Dr. Blunt revealed no significant findings. The patient does not recall recent kidney imaging, suggesting no prior CT scan performed. AKILA TAN JR, MD [facility] [place], [address], [facility] 11/01/2024 15:50:08
--- OUTSIDE RECORDS SUMMARY | 2024-11-24 08:14 | XMS_ITS | Continuity of Care Document ---
Author Organization [facility] Miroslava resendiz [facility] Address [address] [place] [address] Care Team Providers Care Tai Chi Instructor Name Role Phone LEIDA FLOWERS Primary Care Provider [phone] Assessment No assessment recorded. Plan of Treatment Reminders Order Date Submit Date Provider Last Modified By Organization Details Last Modified Time Details Appointments None recorded. Lab urinalysis panel, auto 2024 025 [id number] [facility], [address], [place], [address], 14:05:26 Referral None recorded. Procedures None recorded. Surgeries None recorded. Imaging None recorded. Medication Orders None recorded. Patient TargetsNo targets recorded. Patient InstructionsNo instructions recorded. Reason for Referral None Reported. Results Created Date Observation Date Name Description Value Unit Range Abnormal Flag Note LastModifiedBy Organization Detail LastModifiedTime 11/17/1911/16/2024 urina lysis panel , auto Unknown Analyte Clean Catch Not Available [facility] [address], [place], [address], 11/16/2024 13:33:47 11/17/1911/16/2024 urina lysis panel , auto Unknown Analyte Yellow Not Available [facility] [address], [place], [address], 11/16/2024 13:33:47 11/17/19 25 11/16/2024 urina lysis panel , auto Unknown Analyte Clear Not Available [facility] [address], [place], [address], 11/16/2024 13:33:47 11/17/19 25 11/16/2024 urina lysis panel , auto Unknown Analyte 1.005 Not Available [facility] [address], [place], [address], 11/16/2024 13:33:47 11/17/19 25 11/16/2024 urina lysis panel , auto Unknown Analyte 1.003 - 1.030 Not Available [facility] [address], [place], [address], 11/16/2024 13:33:47 11/17/19 25 11/16/2024 urina lysis panel , auto Unknown Analyte 7.0 Not Available [facility] [address], [place], [address], 11/16/2024 13:33:47 11/17/19 25 11/16/2024 urina lysis panel , auto Unknown Analyte 5.0 - 8.0 Not Available [facility] [address], [place], [address], 11/16/2024 13:33:47 11/17/19 25 11/16/2024 urina lysis panel , auto Unknown Analyte Negati ve Not Available [facility] [address], [place], [address], 11/16/2024 13:33:47 11/17/19 25 11/16/2024 urina lysis panel , auto Unknown Analyte Negati ve Not Available [facility] [address], [place], [address], 11/16/2024 13:33:47 11/17/19 25 11/16/2024 urina lysis panel , auto Unknown Analyte Negati ve Not Available [facility] [address], [place], [address], 11/16/2024 13:33:47 11/17/19 25 11/16/2024 urina lysis panel , auto Unknown Analyte Negati ve Not Available [facility] [address], [place], [address], 11/16/2024 13:33:47 11/17/19 25 11/16/2024 urina lysis panel , auto Unknown Analyte Negati ve Not Available [facility] [address], [place], [address], 11/16/2024 13:33:47 11/17/19 25 11/16/2024 urina lysis panel , auto Unknown Analyte Negati ve Not Available [facility] [address], [place], [address], 11/16/2024 13:33:47 11/17/19 25 11/16/2024 urina lysis panel , auto Unknown Analyte Normal Not Available [facility] [address], [place], [address], 11/16/2024 13:33:47 11/17/19 25 11/16/2024 urina lysis panel , auto Unknown Analyte Normal Not Available [facility] [address], [place], [address], 11/16/2024 13:33:47 11/17/19 25 11/16/2024 urina lysis panel , auto Unknown Analyte Negati ve Not Available [facility] [address], [place], [address], 11/16/2024 13:33:47 11/17/19 25 11/16/2024 urina lysis panel , auto Unknown Analyte Negati ve Not Available [facility] [address], [place], [address], 11/16/2024 13:33:47 11/17/19 25 11/16/2024 urina lysis panel , auto Unknown Analyte Normal Not Available [facility] [address], [place], [address], 11/16/2024 13:33:47 11/17/19 25 11/16/2024 urina lysis panel , auto Unknown Analyte Normal Not Available [facility] [address], [place], [address], 11/16/2024 13:33:47 11/17/19 25 11/16/2024 urina lysis panel , auto Unknown Analyte Negati ve Not Available [facility] [address], [place], [address], 11/16/2024 13:33:47 11/17/19 25 11/16/2024 urina lysis panel , auto Unknown Analyte Negati ve Not Available [facility] [address] [facility] [address], [place], [address], 11/16/2024 13:33:47 11/17/19 25 11/16/2024 urina lysis panel , auto Unknown Analyte 50 Russell/uL Not Available [facility] [address] [facility] [address], [place], [address], 11/16/2024 13:33:47 11/17/19 25 11/16/2024 urina lysis panel , auto Unknown Analyte Negati ve Not Available [facility] [address] [facility] [facility] [address], [place], [address], 11/16/2024 13:33:47 11/06/19 25 11/05/2024 CT, abdom en + pelvi s, w/wo contr ast [facility] [address] [place] [address] Patiblanquita t Name: JOSEFINA mac : 944 Patiblanquita t 0 Orderi ng Provid er: AKILA HONG [facility] EXAM DATE: 2024 EXAM: CT ABD/PE LVIS [...] 350 (1 x 100 mL bottle of [facility] 14932- 1414-9 1). None was wasted and discar [...] MD on 11/06/19 25 2:04 PM [email or web address] [facility] [address] [facility] , [place], [address], 11/08/2024 14:48:59 Result Notes None recorded. 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 Medical [...] active Duratio n: 30 days;Fr equency : daily;Jovita pelayo on Descrip tion: levothy roxine; Dosage: 1; [...] t Available Metamucil Daily active Frequen cy: daily;Jovita pelayo on Descrip tion: psylliu m; Route:o ral; [...] and Address Organization Details Last Updated DateTime 11/16/2024 190.5 cm 27.5 kg/m2 18615.32 g Lizbeth Garner [facility] 11/16/2024 13:33:04 Social History Question Answer Notes LastModified by Organizat ion Details LastModified Time What Was The Date Of Your Most Recent Tobacco Screening? 11/16/2024 Information not available 11/16/2024 Sex: Male Functional Status None recorded. Mental Status None recorded. Family History Nothing Reported. Medical History No medical history recorded. Past Encounters Encounter ID Performer Location Encounter Start Date Encounter Closed Date Diagnosis/Indication Diagnosis SNOMED-CT Code Diagnosis ICD10 Code Diagnosis Note [id number] AKILA TAN JR, MD [facility] [address] [place] [address] 10/29/2024 10:48:13 10/29/2024 11:51:58 Lower urinary tract symptoms due to benign prostatic hypertrophy 4012546807 9101 N40.1 Start alfuzosin with oxybutynin to improve symptoms. Monitor for response and consider surgery if needed. Blood in urine 26936732 R31.9 [id number] MD JEN MOHR [facility] [address] [place] [address] 11/16/2024 13:01:39 11/16/2024 14:03:33 Kidney stone 16397441 N20.0 As above Urge incon tinence of urine 76762224 N39.41 Continue current therapy Health Concerns Section Related Observation LastModified by Organization Detai ls LastModified Time None Recorded Concern Status LastModified by Organization Details LastModified Time None Recorded Payers Encounter Date Sequence Insurance Name Policy Number Policy Khanna Covered Member ID Khanna Member ID Guarantor Name 11/16/2024 2 [employer] (MEDICARE SUPPLEMENT) Hang Pedersen [id number] Hang Pedersen 11/16/2024 1 [place] Hang Pedersen [id number] Hang Pedersen Notes Date Note Type Note Provider Name and Address Organization Details Recorded Time 11/16/2024 text/html Patient is here in follow-up of recent CT scan abdomen pelvis for hematuria. He is found to have centimeter stone in his left renal pelvis nonobstructing as well as a 5 mm stone lower pole calyx on the right. He is on Eliquis for A-fib and has only been on it for 2 or 3 months. He has been asymptomatic. We talked about other options regarding his atrial fibrillation. We discussed 2 general options in dealing with this stone disease. We discussed in situ bilateral shockwave lithotripsy which would require him to be off his anticoagulation therapy for bilateral ureteroscopy and laser of stone with potential stent placement. He would like to proceed with shockwave lithotripsy but will speak with his adjustment supervisor regarding the risk of holding his anticoagulation therapy. He will notify me regarding and decision. Regarding his chronic urinary frequency that seems to be unpredictable. He continues to take oxybutynin chloride. My partner put him on alfuzosin last month and he thinks that may have helped slightly as well. LOUISA LOWE [place] [facility] [place], [address], [facility] 11/16/2024 14:06:29
--- OUTSIDE RECORDS SUMMARY | 2024-11-24 08:14 | XMS_ITS | Data Portability ---
Author Organization [facility] RENEE ShenS [facility] [facility] CLOSED Address [address] [facility] [address] [place] [address] Care Team Providers Care Tricot Knitting Machine Operator Name Role Phone LEIDA FLOWERS Primary Care Provider [phone] Assessment Encounter Date Assessment Date Assessment LastModified [...] recorded. Lab urinalysis panel, auto 2024 025 herminia [facility], [address], [place], [address], 5 14:05:26 urinalysis panel, auto 2024 025 venkat [facility], [address], [address], [place], [address], 5 11:44:50 cytology, non-gyneco logical, unspecifie d specimen 2024 025 [facility], [address] [place], [address], 5 13:05:43 culture, urine 2024 025 [facility], [address] [place] [address], [address], 5 08:51:57 urinalysis panel, auto [address] [facility], [address], [address], [place], [address], 3 20:59:39 Referral None recorded. Procedures None recorded. Surgeries None recorded. Imaging CT, abdomen + pelvis, w/wo contrast 2024 025 [facility], [address] [place], [address], 5 14:09:21 Medication Orders alfuzosin ER 10 mg tablet,ext ended release 24 hr 2024 [facility]25 [facility], [place], [address], 5 11:44:59 oxybutynin chloride ER 10 mg tablet,ext ended release 24 hr [address] [facility], [facility], [place], [address], 4 22:56:24 tamsulosin 0.4 mg capsule 2022 023 [facility], [address] [place] [address], [address], [place], [address], 3 21:03:20 Patient TargetsNo targets recorded. Patient Instructions Encounter Date Encounter Id Patient Instructions Last Modified By Organization Details Last Modified Time 09/20/2023 [id number] learning about healthy weight Not available 09/20/2023 09:55:58 10/29/2024 [id number] - Take alfuzosin as prescribed along with [...] Abnormal Flag Note LastModifiedBy Organization Detail LastModifiedTime 03/25/2003/25/2023 urina lysis panel , auto Unknown Analyte Clean Catch Not Available [facility] [address] [facility] [address], [address], 03/25/2023 15:53:24 03/25/20 23 03/25/2023 urina lysis panel , auto Unknown Analyte Yellow Not Available [facility] [address], [address], 03/25/2023 15:53:24 03/25/20 23 03/25/2023 urina lysis panel , auto Unknown Analyte Clear Not Available [facility] [address], [place], [address], 03/25/2023 15:53:24 03/25/20 23 03/25/2023 urina lysis panel , auto Unknown Analyte 1.020 Not Available [facility] [address], [place], [address], 03/25/2023 15:53:24 03/25/20 23 03/25/2023 urina lysis panel , auto Unknown Analyte 6.0 Not Available [facility] [address], [place], [address], 03/25/2023 15:53:24 03/25/20 23 03/25/2023 urina lysis panel , auto Unknown Analyte 75 Conrado/ul (+) Not Available [facility] [address], [place], [address], 03/25/2023 15:53:24 03/25/20 23 03/25/2023 urina lysis panel , auto Unknown Analyte Negati ve Not Available [facility] [address], [place], [address], 03/25/2023 15:53:24 03/25/20 23 03/25/2023 urina lysis panel , auto Unknown Analyte Negati ve Not Available [facility] [address], [place], [address], 03/25/2023 15:53:24 03/25/20 23 03/25/2023 urina lysis panel , auto Unknown Analyte Normal Not Available [facility] [address], [place], [address], 03/25/2023 15:53:24 03/25/20 23 03/25/2023 urina lysis panel , auto Unknown Analyte Negati ve Not Available [facility] [address], [place], [address], 03/25/2023 15:53:24 03/25/20 23 03/25/2023 urina lysis panel , auto Unknown Analyte Normal Not Available [facility] [address], [place], [address], 03/25/2023 15:53:24 03/25/20 23 03/25/2023 urina lysis panel , auto Unknown Analyte Negati ve Not Available [facility] [address], [place], [address], 03/25/2023 15:53:24 03/25/20 23 03/25/2023 urina lysis panel , auto Unknown Analyte Negati ve Not Available [facility] [address] [facility] [address], [place], [address], 03/25/2023 15:53:24 08/27/19 25 08/31/2024 URINE CULTU RE urine culture No growth day 4. Not Available [facility] [address] [place] [address], [address], 08/31/2024 11:09:19 10/30/19 25 10/29/2024 CYTOL OGY cytology SEE BELOW normal Depar tment of Patho logy Medic al Cytol ogy Repor t NAME: SUE MURGUIA PATH. 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 LEA IGLESIAS MD Sandra d Out Date: 10/30 , 13:05 Page 1 of 1 Not Available [facility] [address] [place] [address], [address], 10/30/2024 13:05:43 10/30/19 25 10/29/2024 urina lysis panel , auto Unknown Analyte Clean Catch Not Available [facility] [address], [place], [address], 10/29/2024 11:31:55 10/30/19 25 10/29/2024 urina lysis panel , auto Unknown Analyte Yellow Not Available [facility] [address], [place], [address], 10/29/2024 11:31:55 10/30/19 25 10/29/2024 urina lysis panel , auto Unknown Analyte Clear Not Available [facility] [address], [place], [address], 10/29/2024 11:31:55 10/30/19 25 10/29/2024 urina lysis panel , auto Unknown Analyte 1.010 Not Available [facility] [address], [place], [address], 10/29/2024 11:31:55 10/30/19 25 10/29/2024 urina lysis panel , auto Unknown Analyte 1.003 - 1.030 Not Available [facility] [address], [place], [address], 10/29/2024 11:31:55 10/30/19 25 10/29/2024 urina lysis panel , auto Unknown Analyte 8.0 Not Available [facility] [address], [place], [address], 10/29/2024 11:31:55 10/30/19 25 10/29/2024 urina lysis panel , auto Unknown Analyte 5.0 - 8.0 Not Available [facility] [address], [place], [address], 10/29/2024 11:31:55 10/30/19 25 10/29/2024 urina lysis panel , auto Unknown Analyte 75 Conrado/uL Not Available [facility] [address], [place], [address], 10/29/2024 11:31:55 10/30/19 25 10/29/2024 urina lysis panel , auto Unknown Analyte Negati ve Not Available [facility] [address], [place], [address], 10/29/2024 11:31:55 10/30/19 25 10/29/2024 urina lysis panel , auto Unknown Analyte Negati ve Not Available [facility] [address], [place], [address], 10/29/2024 11:31:55 10/30/19 25 10/29/2024 urina lysis panel , auto Unknown Analyte Negati ve Not Available [facility] [address], [place], [address], 10/29/2024 11:31:55 10/30/19 25 10/29/2024 urina lysis panel , auto Unknown Analyte Negati ve Not Available [facility] [address], [place], [address], 10/29/2024 11:31:55 10/30/19 25 10/29/2024 urina lysis panel , auto Unknown Analyte Negati ve Not Available [facility] [address], [place], [address], 10/29/2024 11:31:55 10/30/19 25 10/29/2024 urina lysis panel , auto Unknown Analyte Normal Not Available [facility] [address], [place], [address], 10/29/2024 11:31:55 10/30/19 25 10/29/2024 urina lysis panel , auto Unknown Analyte Normal Not Available [facility] [address], [place], [address], 10/29/2024 11:31:55 10/30/19 25 10/29/2024 urina lysis panel , auto Unknown Analyte Negati ve Not Available [facility] [address], [place], [address], 10/29/2024 11:31:55 10/30/19 25 10/29/2024 urina lysis panel , auto Unknown Analyte Negati ve Not Available [facility] [address], [place], [address], 10/29/2024 11:31:55 10/30/19 25 10/29/2024 urina lysis panel , auto Unknown Analyte Normal Not Available [facility] [address], [place], [address], 10/29/2024 11:31:55 10/30/19 25 10/29/2024 urina lysis panel , auto Unknown Analyte Normal Not Available [facility] [address], [place], [address], 10/29/2024 11:31:55 10/30/19 25 10/29/2024 urina lysis panel , auto Unknown Analyte Negati ve Not Available [facility] [address], [place], [address], 10/29/2024 11:31:55 10/30/19 25 10/29/2024 urina lysis panel , auto Unknown Analyte Negati ve Not Available [facility] [address], [place], [address], 10/29/2024 11:31:55 10/30/19 25 10/29/2024 urina lysis panel , auto Unknown Analyte 50 Russell/uL Not Available [facility] [address], [place], [address], 10/29/2024 11:31:55 10/30/19 25 10/29/2024 urina lysis panel , auto Unknown Analyte Negati ve Not Available [facility] [address], [place], [address], 10/29/2024 11:31:55 11/17/19 25 11/16/2024 urina lysis panel , auto Unknown Analyte Clean Catch Not Available [facility] [address] [place] [address] [address], [place], [address], 11/16/2024 13:33:47 11/17/19 25 11/16/2024 urina lysis panel , auto Unknown Analyte Yellow Not Available [facility] [address], [place], [address], 11/16/2024 13:33:47 11/17/19 25 11/16/2024 urina lysis panel , auto Unknown Analyte Clear Not Available [facility] [address], [place], [address], 11/16/2024 13:33:47 11/17/19 25 11/16/2024 urina lysis panel , auto Unknown Analyte 1.005 Not Available [facility] [address], [place], [address], 11/16/2024 13:33:47 11/17/19 25 11/16/2024 urina lysis panel , auto Unknown Analyte 1.003 - 1.030 Not Available [facility] [address], [place], [address], 11/16/2024 13:33:47 11/17/19 25 11/16/2024 urina lysis panel , auto Unknown Analyte 7.0 Not Available [facility] [address], [place], [address], 11/16/2024 13:33:47 11/17/19 25 11/16/2024 urina lysis panel , auto Unknown Analyte 5.0 - 8.0 Not Available [facility] [address], [place], [address], 11/16/2024 13:33:47 11/17/19 25 11/16/2024 urina lysis panel , auto Unknown Analyte Negati ve Not Available [facility] [address], [place], [address], 11/16/2024 13:33:47 11/17/19 25 11/16/2024 urina lysis panel , auto Unknown Analyte Negati ve Not Available [facility] [address], [place], [address], 11/16/2024 13:33:47 11/17/19 25 11/16/2024 urina lysis panel , auto Unknown Analyte Negati ve Not Available [facility] [address], [place], [address], 11/16/2024 13:33:47 11/17/19 25 11/16/2024 urina lysis panel , auto Unknown Analyte Negati ve Not Available [facility] [address], [place], [address], 11/16/2024 13:33:47 11/17/19 25 11/16/2024 urina lysis panel , auto Unknown Analyte Negati ve Not Available [facility] [address], [place], [address], 11/16/2024 13:33:47 11/17/19 25 11/16/2024 urina lysis panel , auto Unknown Analyte Negati ve Not Available [facility] [address], [place], [address], 11/16/2024 13:33:47 11/17/19 25 11/16/2024 urina lysis panel , auto Unknown Analyte Normal Not Available [facility] [address], [place], [address], 11/16/2024 13:33:47 11/17/19 25 11/16/2024 urina lysis panel , auto Unknown Analyte Normal Not Available [facility] [address], [place], [address], 11/16/2024 13:33:47 11/17/19 25 11/16/2024 urina lysis panel , auto Unknown Analyte Negati ve Not Available [facility] [address], [place], [address], 11/16/2024 13:33:47 11/17/19 25 11/16/2024 urina lysis panel , auto Unknown Analyte Negati ve Not Available [facility] [address], [place], [address], 11/16/2024 13:33:47 11/17/19 25 11/16/2024 urina lysis panel , auto Unknown Analyte Normal Not Available [facility] [address], [place], [address], 11/16/2024 13:33:47 11/17/19 25 11/16/2024 urina lysis panel , auto Unknown Analyte Normal Not Available [facility] [address], [place], [address], 11/16/2024 13:33:47 11/17/19 25 11/16/2024 urina lysis panel , auto Unknown Analyte Negati ve Not Available [facility] [address], [place], [address], 11/16/2024 13:33:47 11/17/19 25 11/16/2024 urina lysis panel , auto Unknown Analyte Negati ve Not Available [facility] [address] [facility] [address], [place], [address], 11/16/2024 13:33:47 11/17/19 25 11/16/2024 urina lysis panel , auto Unknown Analyte 50 Russell/uL Not Available [facility] [address] [facility] [address], [place], [address], 11/16/2024 13:33:47 11/17/19 25 11/16/2024 urina lysis panel , auto Unknown Analyte Negati ve Not Available [facility] [address] [facility] [address], [place], [address], 11/16/2024 13:33:47 11/06/19 25 11/05/2024 CT, abdom en + pelvi s, w/wo contr ast [facility] [address] [place] [address] Patien t Name: JOSEFINA Sheffield t : 944 Patien t 0 Orderi [...] 350 (1 x 100 mL bottle of [facility] [address]85- 1414-9 1). None was wasted and discar [...] Signed By: Rodriguez Victoria MD on 11/06/19 2:[address] [facility] [address] , [place], [address], 11/08/2024 14:48:59 Result Notes None recorded. 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 Procedures Surgical History None recorded. Imaging Results Imaging Date Name Status LastModified by Organiz ation Details LastModified Time 11/05/2024 CT, abdomen + pelvis, w/wo contrast completed [address] [facility] [address] , [place], [address], 11/08/2024 14:48:59 Procedure Notes None recorded. Medical Equipment None Reported. [...] and Address Organization Details Last Updated DateTime 03/25/2023 190.5 cm 28.7 kg/m2 700681.25 g Mary Flowers [facility] 03/25/2023 15:53:13 Date Recorded Body height Body mass index (BMI) Body weight Provider Name and Address Organization Details Last Updated DateTime 09/20/2023 190.5 cm 28.7 kg/m2 844989.25 g Leslie Ibarra [facility] 09/20/2023 09:26:19 Date Recorded Body height Body mass index (BMI) Body weight Provider Name and Address Organization Details Last Updated DateTime 10/29/2024 190.5 cm 27.5 kg/m2 54851.32 g Sonali Cummings [facility] 10/29/2024 11:25:24 Date Recorded Body height Body mass index (BMI) Body weight Provider Name and Address Organization Details Last Updated DateTime 11/16/2024 190.5 cm 27.5 kg/m2 51277.32 g Lizbeth Garner [facility] 11/16/2024 13:33:04 Social History Question Answer [...] SNOMED-CT Code Diagnosis ICD10 Code Diagnosis Note [id number] LOUISA LOWE MD [facility] [address] [place] [address] 10/31/2022 14:10:13 10/31/2022 15:31:35 Urge incontinence of urine 03204341 N39.41 We will arrange for flexible local cystoscopy Large prostate 226651812 N40.0 [id number] LOUISA LOWE MD SURGERY SCHEDULE [address] [place] [address] 11/21/2022 06:46:29 11/21/2022 06:49:30 [id number] LOUISA LOWE MD [facility] [address] [address] 12/17/2022 10:44:57 12/17/2022 11:18:24 Urge incontinence of urine 34364139 N39.41 Continue current therapy follow-up 3 months [id number] LOUISA LOWE MD JEN [facility] [address] [address] 03/25/2023 14:44:02 03/25/2023 15:05:51 Urge incontinence of urine 19064041 N39.41 Continue current therapy follow-up 3 months Terminal d ribbling of urine 382807310 N39.43 As above, follow-up 6 months earlier if necessary [id number] LOUISA LOWE MD JEN [facility] [address] [address] 09/20/2023 09:04:33 09/20/2023 09:55:59 Increased frequency of urination 144616840 R35.0 Follow-up 1 year [id number] IVANIA VUONG MD [facility] [address] [address] 08/27/2024 12:01:07 08/27/2024 12:01:25 Acute urinary tract infection 480476169 N39.0 [id number] AKILA TAN JR, MD JEN [facility] [address] [address] 10/29/2024 10:48:13 10/29/2024 11:51:58 Lower urinary tract symptoms due to benign prostatic hypertrophy 0648860377 9101 N40.1 Start alfuzosin with oxybutynin to improve symptoms. Monitor for response and consider surgery if needed. Blood in urine 27469170 R31.9 [id number] LOUISA LOWE MD [facility] [address] [place] [address] 11/16/2024 13:01:39 11/16/2024 14:03:33 Kidney stone 06780705 N20.0 As above Urge incon tinence of urine 66126673 N39.41 Continue current therapy Health Concerns Section Related Observation LastModified by Organization Detai ls LastModified Time None Recorded Concern Status LastModified by Organization Details LastModified Time None Recorded Advance Directives Directive None Recorded Payers Insurance Date Sequence Insurance Name Policy Number Policy Khanna Covered Member ID Khanna Member ID Guarantor Name 11/13/2024 2 [facility] (MEDICARE SUPPLEMENT) Hang Pedersen [id number] Hang Pedersen 11/02/2022 1 [facility] (MEDICARE REPLACEMENT/A DVANTAGE - HMO) Hang Pedersen [id number] Hang Pedersen 11/05/2024 1 [place] Hang Pedersen [id number] Hang Pedersen Notes Date Note Type Note Provider Name and Address Organization Details Recorded Time 03/25/2023 text/html Patient is here in follow-up of urinary urgency with urgency incontinence and bladder instability. At time of his cystoscopy had no significant obstruction. He has been on oxybutynin chloride extended release 10 mg and from a urgency standpoint he is markedly improved. He typically has nocturia x2. His only complaint at this time for the most part is postvoid dribbling despite his efforts to be patient. We discussed that perhaps a trial of tamsulosin would improve his voiding pattern. He will continue on oxybutynin chloride extended release 10 mg. MD Drew MOHR, [place], [phone], [facility] 03/25/2023 21:00:39 09/20/2023 text/html Patient is here for 6-month follow-up. He continues on oxybutynin chloride 10 mg for urinary frequency and urgency. He was having some postvoid dribbling and likely him on tamsulosin at his last visit in March. He noticed no difference on the therapy but discontinued the tamsulosin and has continued to do well. He is only taking oxybutynin chloride and is very pleased. He typically has nocturia x 1 MD Drew MOHRway, [place], [phone], [facility] 09/26/2023 22:56:56 10/29/2024 text/html The patient is a n [...] CT scan performed. AKILA TAN JR, MD [address] [place] [address], [phone], [facility] 11/01/2024 15:50:08 11/16/2024 text/html Patient is here in follow-up [...] shockwave lithotripsy but will speak with his back filler operator regarding the risk of holding his anticoagulation therapy. He will notify me regarding and decision. Regarding his chronic urinary frequency that seems to be unpredictable. He continues to take oxybutynin chloride. My partner put him on alfuzosin last month and he thinks that may have helped slightly as well. LOUISA LOWE MD [address] [place] [address], [phone], [facility] 11/16/2024 14:06:29
[2024-11-24 08:56] LABS: Basophils % 0.5 % (0.1-2.0); Eosinophils # 0.3 Kmm3 (0.0-0.4); Eosinophils % 6.8 % (0.1-12.0); Hematocrit 44.1 % (42.0-52.0); Hemoglobin 14.8 g/dL (14.1-18.0); Immature Granulocytes # 0.01 10^3uL; Immature Granulocytes % 0.2 %; Lymphocytes # 1.3 K/mm3 (0.7-4.5); Lymphocytes % 30.2 % (10-50); Mean Corpuscular HGB Conc 33.6 g/dL (31.8-35.4); Mean Corpuscular Hemoglobin 31.6 pg (27.0-31.2); Mean Corpuscular Volume 94.2 fl (80-94); Mean Platelet Volume 10.1 fl (7.4-10.4); Monocytes # 0.5 K/mm3 (0.1-1.0); Monocytes % 11.8 % (1.7-9.3); Neutrophils # 2.2 K/mm3 (1.8-7.8); Neutrophils % 50.5 % (37.0-80.0); Nucleated Red Blood Cells # 0 10^3/uL; Nucleated Red Blood Cells % 0 %; Platelet Count 185 K/mm3 (142-424); Red Blood Count 4.68 M/mm3 (4.60-6.20); Red Cell Distribution Width 13.7 % (11.5-17.5); Red Cell Distribution Width-SD 47.4 fL; White Blood Count 4.4 K/mm3 (4.8-10.8)
[2024-11-24 09:25] LABS: Alanine Aminotransferase 23 U/L (12-78); Albumin Level 4.6 g/dl (3.5-5.0); Albumin/Globulin Ratio 2.2 (1.1-1.8); Alkaline Phosphatase 35 U/L (38-126); Aspartate Amino Transferase 30 U/L (17-59); Bilirubin,Total 0.9 mg/dl (0.2-1.3); Blood Urea Nitrogen 18 mg/dl (9-20); Calcium 9.5 mg/dl (8.4-10.2); Carbon Dioxide 28 mmol/L (22.0-30.0); Chloride 106 mmol/L (98-107); Chol/HDL Ratio 3.5 (1-3.5); Cholesterol 116 mg/dl (140-200); Estimated Glomerular Filt Rate 81 ml/min (>60); GFR (African American) 98 ML/MIN (>60); Globulin 2.1 g/dL (1.3-3.2); Glucose 91 mg/dl (74-100); HDL Cholesterol 33 mg/dl (40-60); Sodium 138 mmol/L (136-145); Total Protein,Serum 6.7 g/dl (6.3-8.2); Triglycerides 128 mg/dl (30-150); VLDL Cholesterol 26 mg/dL (0-40)
[2024-11-24 09:36] LABS: Direct LDL Cholesterol 64.47 mg/dL (100-129)
== END 2024-11-24 23:59 | disposition home or self-care (01) ==
LOC: LAB 08:12
PROVIDERS: PCP Internal Medicine; Visit Provider Internal Medicine
DX: I10 Essential (primary) hypertension (principal); R73.02 Impaired glucose tolerance (oral); E78.5 Hyperlipidemia, unspecified
CPT/HCPCS: 36415; 80053; 80061; 85025

== ENCOUNTER 2025-05-28 07:30 | Outpatient (CLI) | payer MEDICARE, SELFPAY ==
--- OUTSIDE RECORDS SUMMARY | 2025-05-28 07:34 | XMS_ITS | Clinical Summary ---
Author Organization [employer] ([place], [place], [place], [place], [place]) Address [address] [place] [address] Care Team Providers Care Arabic Professor Name Role Phone Unavailable Primary Care Provider Unavailabl e Allergies No known active allergies Medications Eliquis 5 MG tablet Take 1 tablet (5 mg total) by mouth 2 (two) times daily. 11/20/2024 Active clopidogreL (PLAVIX) 75 mg tablet Take 1 tablet (75 mg total) by mouth daily. Active atorvastatin (LIPITOR) 80 MG tablet Take 1 tablet (80 mg total) by mouth in the morning. Active metoprolol succinate (TOPROL-XL) 25 MG 24 hr tablet Take 1 tablet (25 mg total) by mouth daily. Active levothyroxine (SYNTHROID) 88 MCG tablet Take 1 tablet (88 mcg total) by mouth daily. 08/31/2024 Active oxybutynin (DITROPAN-XL) 10 MG 24 hr tablet Take 1 tablet (10 mg total) by mouth daily. 06/01/2024 Active losartan (COZAAR) 25 MG tablet Take 1 tablet (25 mg total) by mouth daily. 07/24/2024 Active alfuzosin (UROXATRAL) 10 mg 24 hr tablet Take 1 tablet (10 mg total) by mouth daily. 10/29/2024 Active fenofibrate (TRICOR) 145 MG tablet Take 1 tablet (145 mg total) by mouth daily. Active Active Problems Problem Noted Date Diagnosed Date Preop examination 12/04/2024 PAF (paroxysmal atrial fibrillation) 12/04/2024 CAD (coronary artery disease) 12/04/2024 Hx of CABG 12/04/2024 BPH (benign prostatic hyperplasia) 12/04/2024 Hyperlipidemia 12/04/2024 Hypothyroid 12/04/2024 HTN (hypertension) 12/04/2024 Sinus bradycardia 12/04/2024 Overactive bladder 12/04/2024 Social History Tobacco Use Types Packs/Day Years Used Date Smoking Tobacco: Never Smokeless Tobacco: Never Alcohol Use Standard Drinks/Week Comments Yes 0 (1 standard drink = 0.6 oz pur e alcohol) rare Sex and Gender Information Value Date Recorded Sex Assigned at Not on file Legal Sex Male 4:33 PM CDT Gender Identity Not on file Sexual Orientation Not on file Last Filed Vital Signs Vital Sign Reading Time Taken Comments Blood Pressure 143/76 12/22/2024 4:40 PM EDT Pulse 61 12/22/2024 4:40 PM EDT Temperature 36.3 C (97.4 F) 12/22/2024 4:16 PM EDT Respiratory Rate 17 12/22/2024 4:40 PM EDT Oxygen Saturation 97% 12/22/2024 4:40 PM EDT Inhaled Oxygen Concentration - - Weight 99.5 kg (219 lb 6.4 oz) 12/22/2024 1:38 P M EDT Height 190.5 cm (6' 3 ) 12/04/2024 10:42 AM EDT Body Mass Index 27.42 12/04/2024 10:42 AM EDT Plan of Treatment Health Maintenance Due Date Last Done Comments Depression Screening (12+) 1957 DTAP/TDAP/TD VACCINES (1 - Tdap) 1964 Medicare Initial AWV G0438 03/09/2010 Pneumococcal 50+ years (2 of 2 - PCV) 04/12/2018 04/12/2017 Respiratory Syncytial Virus (RSV) Adult or (1 - 1-dose 75+ series) 2019 Falls Risk Screening 07/08/2024 COVID-19 VACCINE (8 - 2023-2 5 season) 2025 04/06/2024, 04/24/2023, 04/04/2022, Additional history exists Influenza Vaccine (#1) 2025 , 04/24/2023, 05/01/2022, Additional history exists Tobacco Cessation Counseling and Screening (12+) 12/22/2025 12/22/2024 Shingles Vaccine (Zoster) Completed 06/13/2021, 11/[address] [place] [address] [place] [address] [address] [place] [address] [place] [address]
--- OUTSIDE RECORDS SUMMARY | 2025-05-28 07:34 | XMS_ITS | Referral Summary ---
Author Organization [employer] ([place], [place], [place], [place], [place]) Address [address] [place] [address] Care Team Providers Care Casing Puller Name Role Phone Unavailable Primary Care Provider [...] 12/04/2024 10:42 AM EDT Plan of Treatment Not on file Insurance MEDICARE PART A B
--- OUTSIDE RECORDS SUMMARY | 2025-05-28 07:34 | XMS_ITS | Clinical Summary ---
Author Organization [facility] Address [address] [place] [address] Care Team Providers Care Registered Vascular Technologist (Rvt) Name Role Phone Koko Castillo MD Primary Care Provider [phone] Allergies No known active allergies Medications atorvastatin (LIPITOR) 80 MG tablet Take 1 tablet by mouth Daily. 4 Active clopidogrel (PLAVIX) 75 MG tablet 5 Active fenofibrate (TRICOR) 145 MG tablet Take 1 tablet by mouth Daily. 5 Active levothyroxine sodium (TIROSINT) 75 MCG capsule Take by mouth. Act catarino losartan (COZAAR) 25 MG tablet Take 1 tablet by mouth Daily. 5 Active metoprolol succinate XL (TOPROL-XL) 25 MG 24 hr tablet Take 1 tablet by mouth Daily. 5 Active oxybutynin XL (DITROPAN-XL) 10 MG 24 hr tablet Take 1 tablet by mouth Daily. 4 Active Xarelto 20 MG tablet TAKE 1 TABLET DAILY; MUST ADMINISTER WITH EVENING MEAL. 4 Active Family History Medical History Relation Name Comments Cancer Father Relation Name Status Comments Father Mother Social History Tobacco Use Types Packs/Day Years Used Date Smoking Tobacco: Never Smokeless Tobacco: Never Tobacco Cessation:Counseling Given: No Alcohol Use Standard Drinks/Week Comments Never 0 (1 standard drink = 0.6 oz pur e alcohol) Sex and Gender Information Value Date Recorded Sex Assigned at Not on file Legal Sex Male 1:01 PM EDT Gender Identity Not on file Sexual Orientation Not on file Last Filed Vital Signs Vital Sign Reading Time Taken Comments Blood Pressure 122/62 08/27/2024 9:58 AM EST Pulse 60 08/27/2024 9:58 AM EST Temperature - - Respiratory Rate 16 03/16/2013 8:55 AM EDT Oxygen Saturation 99% 08/27/2024 9:58 AM EST Inhaled Oxygen Concentration - - Weight 103 kg (226 lb 3.2 oz) 08/27/2024 9:58 AM EST Height 190.5 cm (6' 3 ) 08/27/2024 9:58 AM EST Body Mass Index 28.27 08/27/2024 9:58 AM EST Plan of Treatment Upcoming Encounters Date Type Department Care Team (Late st Contact Info) Description 09/02/2025 11:00 AM EST Office Visit [facility] [address] [facility] [address] [place] [address] Rodriguez Hernandez MD [address] [facility] [address] [place] [address] Health Maintenance Due Date Last Done Comments TDAP/TD VACCINES (1 - Tdap) 1964 Pneumococcal Vaccine 50+ (2 of 2 - PCV) 04/12/2018 04/12/2017 RSV Vaccine - Adults (1 - 1- dose 75+ series) 2019 ANNUAL WELLNESS VISIT 08/25/2024 INFLUENZA VACCINE 02/05/2025 04/06/2024, , 05/01/2022, Additional history exists COVID-19 Vaccine (6 - Modern a risk season) 2025 04/06/2024, 04/24/2023, 04/04/2022, Additional history exists ZOSTER VACCINE Completed 06/13/2021, 04/11/2021 Insurance [facility] [id number] [id number] MEDICARE A & B [facility] [employer] Care Teams Registered Vascular Technologist (Rvt) Relationship Specialty Start Date End Date Koko Castillo MD [address] [id number] [address] [facility] [address] PCP - General Internal Medicine 08/27/24
--- OUTSIDE RECORDS SUMMARY | 2025-05-28 07:34 | XMS_ITS | Data Portability ---
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 Lab kidney stone analysis 2024 025 [facility], [address] [facility], [place], [address], 5 18:55:26 urinalysis panel, auto 2024 025 herminia [facility], [address], [address], [place], [address], 08:28:02 urinalysis panel, auto 2024 025 [facility], [address], [address], [place], [address], 5 14:05:26 urinalysis panel, auto 2024 025 [facility], [address], [address], [place], [address], 5 11:44:50 cytology, non-gyneco logical, unspecifie d specimen 2024 025 [facility], [address] [place] [address], [address], 5 13:05:43 culture, urine 2024 025 [facility], [address] [place] [address], [address], 5 08:51:57 Referral None recorded. Procedures None recorded. Surgeries None recorded. Imaging CT, abdomen + pelvis, w/wo contrast 2024 025 [facility], [address] [place] [address], [address], 5 14:09:21 Medication Orders alfuzosin ER 10 mg tablet,ext ended release 24 hr 2024 025 [facility], [facility], [place], [address], 5 11:44:59 oxybutynin chloride ER 10 mg tablet,ext ended release 24 hr [address], [facility], [place], [address], 4 22:56:24 Patient TargetsNo targets recorded. Patient Instructions Encounter Date Encounter Id Patient Instructions Last Modified By Organization Details Last Modified Time 09/20/2023 [id number] learning about healthy weight [email or web address] Not available 09/20/2023 09:55:58 10/29/2024 [id number] - Take alfuzosin as prescribed along with [...] Abnormal Flag Note LastModifiedBy Organization Detail LastModifiedTime 08/27/1908/31/2024 URINE CULTU RE urine culture No growth day 4. Not Available [facility] [address] [place], [address], 08/31/2024 11:09:19 10/30/1910/29/2024 CYTOL OGY cytology SEE BELOW normal Depar tment of Patho logy Medic al Cytol ogy Repor t NAME: SUE MURGUIA PATH. 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 LEA IGLESIAS MD Sandra d Out Date: 10/30 , 13:05 Page 1 of 1 Not Available [facility] [address] [place], [address], 10/30/2024 13:05:43 10/30/1910/29/2024 urina lysis panel , auto Unknown Analyte Clean Catch Not Available [facility] [address], [place], [address], 10/29/2024 11:31:55 10/30/19 25 10/29/2024 urina lysis panel , auto Unknown Analyte Yellow Not Available [facility] [address], [place], [address], 10/29/2024 11:31:55 10/30/19 25 10/29/2024 urina lysis panel , auto Unknown Analyte Clear Not Available [facility] [address], [place], [address], 10/29/2024 11:31:55 10/30/19 25 10/29/2024 urina lysis panel , auto Unknown Analyte 1.010 Not Available [facility] [address], [place], [address], 10/29/2024 11:31:55 10/30/19 25 10/29/2024 urina lysis panel , auto Unknown Analyte 1.003 - 1.030 Not Available [facility] [address], [place], [address], 10/29/2024 11:31:55 10/30/19 25 10/29/2024 urina lysis panel , auto Unknown Analyte 8.0 Not Available [facility] [address], [place], [address], 10/29/2024 11:31:55 10/30/19 25 10/29/2024 urina lysis panel , auto Unknown Analyte 5.0 - 8.0 Not Available [facility] [address], [place], [address], 10/29/2024 11:31:55 10/30/19 25 10/29/2024 urina lysis panel , auto Unknown Analyte 75 Conrado/uL Not Available [facility] [address], [place], [address], 10/29/2024 11:31:55 10/30/19 25 10/29/2024 urina lysis panel , auto Unknown Analyte Negati ve Not Available [facility] [address], [place], [address], 10/29/2024 11:31:55 10/30/19 25 10/29/2024 urina lysis panel , auto Unknown Analyte Negati ve Not Available [facility] [address], [place], [address], 10/29/2024 11:31:55 10/30/19 25 10/29/2024 urina lysis panel , auto Unknown Analyte Negati ve Not Available [facility] [address], [place], [address], 10/29/2024 11:31:55 10/30/19 25 10/29/2024 urina lysis panel , auto Unknown Analyte Negati ve Not Available [facility] [address] [place] [address] Rd [address], [place], [address], 10/29/2024 11:31:55 10/30/19 25 10/29/2024 urina lysis panel , auto Unknown Analyte Negati ve Not Available [facility] [address], [place], [address], 10/29/2024 11:31:55 10/30/19 25 10/29/2024 urina lysis panel , auto Unknown Analyte Normal Not Available [facility] [address], [place], [address], 10/29/2024 11:31:55 10/30/19 25 10/29/2024 urina lysis panel , auto Unknown Analyte Normal Not Available [facility] [address], [place], [address], 10/29/2024 11:31:55 10/30/19 25 10/29/2024 urina lysis panel , auto Unknown Analyte Negati ve Not Available [facility] [address], [place], [address], 10/29/2024 11:31:55 10/30/19 25 10/29/2024 urina lysis panel , auto Unknown Analyte Negati ve Not Available [facility] [address], [place], [address], 10/29/2024 11:31:55 10/30/19 25 10/29/2024 urina lysis panel , auto Unknown Analyte Normal Not Available [facility] [address] [place] [address] Rd [address], [place], [address], 10/29/2024 11:31:55 10/30/19 25 10/29/2024 urina lysis panel , auto Unknown Analyte Normal Not Available [facility] [address], [place], [address], 10/29/2024 11:31:55 10/30/19 25 10/29/2024 urina lysis panel , auto Unknown Analyte Negati ve Not Available [facility] [address], [place], [address], 10/29/2024 11:31:55 10/30/19 25 10/29/2024 urina lysis panel , auto Unknown Analyte Negati ve Not Available [facility] [address], [place], [address], 10/29/2024 11:31:55 10/30/19 25 10/29/2024 urina lysis panel , auto Unknown Analyte 50 Russell/uL Not Available [facility] [address], [place], [address], 10/29/2024 11:31:55 10/30/19 25 10/29/2024 urina lysis panel , auto Unknown Analyte Negati ve Not Available [facility] [address], [place], [address], 10/29/2024 11:31:55 11/17/19 25 11/16/2024 urina lysis panel , auto Unknown Analyte Clean Catch Not Available [facility] [address], [place], [address], 11/16/2024 13:33:47 11/17/19 25 11/16/2024 urina lysis panel , auto Unknown Analyte Yellow Not Available [facility] [address], [place], [address], 11/16/2024 13:33:47 11/17/19 25 11/16/2024 urina lysis panel , auto Unknown Analyte Clear Not Available [facility] [address], [place], [address], 11/16/2024 13:33:47 11/17/19 25 11/16/2024 urina lysis panel , auto Unknown Analyte 1.005 Not Available [facility] [address], [place], [address], 11/16/2024 13:33:47 11/17/19 25 11/16/2024 urina lysis panel , auto Unknown Analyte 1.003 - 1.030 Not Available [facility] [address], [place], [address], 11/16/2024 13:33:47 11/17/19 25 11/16/2024 urina lysis panel , auto Unknown Analyte 7.0 Not Available [facility] [address], [address], 11/16/2024 13:33:47 11/17/19 25 11/16/2024 urina lysis panel , auto Unknown Analyte 5.0 - 8.0 Not Available [facility] [address], [place], [address], 11/16/2024 13:33:47 11/17/19 25 11/16/2024 urina lysis panel , auto Unknown Analyte Negati ve Not Available [facility] [address], [place], [address], 11/16/2024 13:33:47 11/17/19 25 11/16/2024 urina lysis panel , auto Unknown Analyte Negati ve Not Available [facility] [address] [place] [address] [address], [place], [address], 11/16/2024 13:33:47 11/17/19 25 11/16/2024 urina lysis panel , auto Unknown Analyte Negati ve Not Available [facility] [address], [place], [address], 11/16/2024 13:33:47 11/17/19 25 11/16/2024 urina lysis panel , auto Unknown Analyte Negati ve Not Available [facility] [address], [place], [address], 11/16/2024 13:33:47 11/17/19 25 11/16/2024 urina lysis panel , auto Unknown Analyte Negati ve Not Available [facility] [address] [place] [address] [address], [place], [address], 11/16/2024 13:33:47 11/17/19 25 11/16/2024 urina lysis panel , auto Unknown Analyte Negati ve Not Available [facility] [address] [place] [address] [address], [place], [address], 11/16/2024 13:33:47 11/17/19 25 11/16/2024 urina lysis panel , auto Unknown Analyte Normal Not Available [facility] [address], [place], [address], 11/16/2024 13:33:47 11/17/19 25 11/16/2024 urina lysis panel , auto Unknown Analyte Normal Not Available [facility] [address] [place] [address] [address], [place], [address], 11/16/2024 13:33:47 11/17/19 25 11/16/2024 urina lysis panel , auto Unknown Analyte Negati ve Not Available [facility] [address], [place], [address], 11/16/2024 13:33:47 11/17/19 25 11/16/2024 urina lysis panel , auto Unknown Analyte Negati ve Not Available [facility] [address], [place], [address], 11/16/2024 13:33:47 11/17/19 25 11/16/2024 urina lysis panel , auto Unknown Analyte Normal Not Available [facility] [address], [place], [address], 11/16/2024 13:33:47 11/17/19 25 11/16/2024 urina lysis panel , auto Unknown Analyte Normal Not Available [facility] [address], [place], [address], 11/16/2024 13:33:47 11/17/19 25 11/16/2024 urina lysis panel , auto Unknown Analyte Negati ve Not Available [facility] [address], [place], [address], 11/16/2024 13:33:47 11/17/19 25 11/16/2024 urina lysis panel , auto Unknown Analyte Negati ve Not Available [facility] [address], [place], [address], 11/16/2024 13:33:47 11/17/19 25 11/16/2024 urina lysis panel , auto Unknown Analyte 50 Russell/uL Not Available [facility] [address], [place], [address], 11/16/2024 13:33:47 11/17/19 25 11/16/2024 urina lysis panel , auto Unknown Analyte Negati ve Not Available [facility] [address], [place], [address], 11/16/2024 13:33:47 01/21/20 25 01/25/2025 STONE PEGGY SIS composition SEE NOTE normal Calci um Oxala te Dihyd rate (Wedd ellit e) 15% Calci um Oxala te Monoh ydrat e (Whew ellit e) 70% Carbo terrence Apati te (Dahl lite) 15% Not Available [address], [address], 01/25/2025 18:55:26 01/21/20 25 01/25/2025 STONE PEGGY SIS weight 0.149 g normal Forma asuncion, surgi dakota gel, tape adhes catarino or trans port media inter fere with the peggy tical proce dure. Follo w up testi ng with the UroRi sk(R) Panel is sugge sted for affec compa sampl es, if clini juan indic ated. This test was devel oped and its peggy tical perfo rmanc e mike cteri stics have been deter mined by [facility]. It has not been clear ed or appro kendy by the FDA. This assay has been valid ated pursu ant to the CLIA regul ation s and is used for clini dakota purpo ses. Not Available [address], [address], 01/25/2025 18:55:26 01/21/20 25 01/20/2025 urina lysis panel , auto Unknown Analyte Clean Catch Not Available [facility] [address], [place], [address], 01/20/2025 15:54:34 01/21/20 25 01/20/2025 urina lysis panel , auto Unknown Analyte Yellow Not Available [facility] [address], [place], [address], 01/20/2025 15:54:34 01/21/20 25 01/20/2025 urina lysis panel , auto Unknown Analyte Clear Not Available [facility] [address], [place], [address], 01/20/2025 15:54:34 01/21/20 25 01/20/2025 urina lysis panel , auto Unknown Analyte 1.020 Not Available [facility] [address], [place], [address], 01/20/2025 15:54:34 01/21/20 25 01/20/2025 urina lysis panel , auto Unknown Analyte 1.003 - 1.030 Not Available [facility] [address], [address], 01/20/2025 15:54:34 01/21/20 25 01/20/2025 urina lysis panel , auto Unknown Analyte 6.0 Not Available [facility] [address], [place], [address], 01/20/2025 15:54:34 01/21/20 25 01/20/2025 urina lysis panel , auto Unknown Analyte 5.0 - 8.0 Not Available [facility] [address], [place], [address], 01/20/2025 15:54:34 01/21/20 25 01/20/2025 urina lysis panel , auto Unknown Analyte 75 Conrado/uL Not Available [facility] [address], [place], [address], 01/20/2025 15:54:34 01/21/20 25 01/20/2025 urina lysis panel , auto Unknown Analyte Negati ve Not Available [facility] [address], [place], [address], 01/20/2025 15:54:34 01/21/20 25 01/20/2025 urina lysis panel , auto Unknown Analyte Negati ve Not Available [facility] [address], [place], [address], 01/20/2025 15:54:34 01/21/20 25 01/20/2025 urina lysis panel , auto Unknown Analyte Negati ve Not Available [facility] [address], [place], [address], 01/20/2025 15:54:34 01/21/20 25 01/20/2025 urina lysis panel , auto Unknown Analyte Negati ve Not Available [facility] [address], [place], [address], 01/20/2025 15:54:34 01/21/20 25 01/20/2025 urina lysis panel , auto Unknown Analyte Negati ve Not Available [facility] [address], [place], [address], 01/20/2025 15:54:34 01/21/20 25 01/20/2025 urina lysis panel , auto Unknown Analyte Normal Not Available [facility] [address], [place], [address], 01/20/2025 15:54:34 01/21/20 25 01/20/2025 urina lysis panel , auto Unknown Analyte Normal Not Available [facility] [address], [place], [address], 01/20/2025 15:54:34 01/21/20 25 01/20/2025 urina lysis panel , auto Unknown Analyte Negati ve Not Available [facility] [address], [place], [address], 01/20/2025 15:54:34 01/21/20 25 01/20/2025 urina lysis panel , auto Unknown Analyte Negati ve Not Available [facility] [address], [place], [address], 01/20/2025 15:54:34 01/21/20 25 01/20/2025 urina lysis panel , auto Unknown Analyte Normal Not Available [facility] [address], [place], [address], 01/20/2025 15:54:34 01/21/20 25 01/20/2025 urina lysis panel , auto Unknown Analyte Normal Not Available [facility] [address], [place], [address], 01/20/2025 15:54:34 01/21/20 25 01/20/2025 urina lysis panel , auto Unknown Analyte Negati ve Not Available [facility] [address], [place], [address], 01/20/2025 15:54:34 01/21/20 25 01/20/2025 urina lysis panel , auto Unknown Analyte Negati ve Not Available [facility] [address], [place], [address], 01/20/2025 15:54:34 01/21/20 25 01/20/2025 urina lysis panel , auto Unknown Analyte Negati ve Not Available [facility] [address], [place], [address], 01/20/2025 15:54:34 01/21/20 25 01/20/2025 urina lysis panel , auto Unknown Analyte Negati ve Not Available [facility] [address], [place], [address], 01/20/2025 15:54:34 11/06/19 25 11/05/2024 CT, abdom en + pelvi s, w/wo contr ast Jalyn boyd [facility] [address] [place] [address] Patien t Name: JOSEFINA PEDERSEN Yohannes t : 944 [address] t 0 Orderi ng Provid er: AKILA SMITH JR EXAM DATE: 2024 EXAM: CT ABD/PE LVIS [...] 350 (1 x 100 mL bottle of [facility] [address]-9 1). None was wasted and discar [...] Rodriguez Victoria MD on 11/06/19 2:04 PM [email or web address] [facility] [address] , [place], [address], 11/08/2024 14:48:59 Result Notes Documentation Provider Name and Address Organization Details Recorded Time Ct, Abdomen + Pelvis, W/wo Contrast : [address] [place] [address] Patient Name: HANG PEDERSEN Patient : [id number] Patient Ordering Provider: AKILA TAN JR EXAM DATE: 11/05/2024 EXAM: CT ABD/PELVIS W/WO CONTRAST CLINICAL INFORMATION: Incontinence TECHNIQUE: A baseline serum creatinine with eGFR was obtained prior to injection of contrast medium due to the patients risk factors for SALINA. Calculated eGFR at time of exam was [address] images of the abdomen were obtained before and in the combined nephrographic and excretory phases after a split injection of 100 mL Omnipaque 350 (1 x 100 mL bottle of [facility] [id number]). None was wasted and discarded. No oral contrast or water was administered to the patient. CT IVP images were created on a 3D workstation. COMPARISON: None. FINDINGS ON CT ABDOMEN: LOWER THORAX: Lung bases are clear. No obvious cardiac abnormality. URINARY TRACT: Both kidneys are normal in location, size, shape, outline and parenchymal thickness. Punctate nonobstructive stone noted in the right kidney. There is a 1 cm stone in the left renal pelvis, 8-12 100. No significant obstructive uropathy.. Nephrographic phase shows normal parenchymal enhancement bilaterally without delay. Subcentimeter cyst involving the top of the left kidney.. Excretory phase shows adequate opacification of collecting systems and ureters without dilatation or filling defect. Urinary bladder is normal in outline and wall thickness without filling defect or mass. OTHER UPPER ABDOMINAL ORGANS: Liver, spleen, pancreas, and adrenals are normal. The gallbladder is surgically absent. BOWEL AND MESENTERY: Stomach, small bowel and colon are normal. No mesenteric lymphadenopathy or peritoneal free fluid. RETROPERITONEUM: Aorta, IVC and their branches are patent and normal. No retroperitoneal lymphadenopathy. ABDOMINAL WALL AND SKELETAL STRUCTURES: Normal. FINDINGS ON CT PELVIS: PELVIC CAVITY: Urinary bladder and rectosigmoid are normal. The prostate is mildly enlarged with coarse calcifications. No pelvic or inguinal lymphadenopathy, mass or fluid. MUSCULOSKELETAL STRUCTURES: Normal. COMBINED IMPRESSION: Bilateral renal stones including a sizable stone in the left renal pelvis. 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 19599598331 07 Active 2015 From Automated Load;Prov ider: Sam Rileyita;St atus: Active Not Available [facility] 6 05:37:51 Hypertens catarino disorder 71023886 Active 2015 From Automated Load;Prov ider: [place] Loretta;St atus: Active Not Available [facility] 6 05:37:51 Familial combined hyperlipi demia 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 Medical Equipment None Reported. Allergies No known drug allergies Medications Name Sig Start Date Stop Date Status Note LastModified by Organization Details LastModified Time atorvastatin 80 mg tablet Take 1 tablet every day by oral route. active Not Available Not Available No t Available oxybutynin chloride ER 10 mg tablet,extend ed release 24 hr TAKE 1 TABLET DAILY 2024 active Not Available Not Available Not [...] Available Metamucil Daily active Frequen cy: daily;M gita on Descrip tion: psylliu m; Route:o ral; [...] Updated DateTime 09/20/2023 190.5 cm 28.7 kg/m2 937442.25 g Leslie Stewartt [facility] 09/20/2023 09:26:19 Date Recorded Body height Body mass index (BMI) Body weight Provider Name and Address Organization Details Last Updated DateTime 10/29/2024 190.5 cm 27.5 kg/m2 49436.32 g Sonali Candelarioshaw [facility] 10/29/2024 11:25:24 Date Recorded Body height Body mass index (BMI) Body weight Provider Name and Address Organization Details Last Updated DateTime 11/16/2024 190.5 cm 27.5 kg/m2 62270.32 g Lizbethdilan Garner [facility] 11/16/2024 13:33:04 Date Recorded Body height Body mass index (BMI) Body weight Provider Name and Address Organization Details Last Updated DateTime 01/20/2025 190.5 cm 27.5 kg/m2 74798.32 g Mary Jonathan [facility] 01/20/2025 15:58:24 Social History Question Answer Notes LastModified by Organizat ion Details LastModified Time What Was The Date Of Your Most Recent Tobacco Screening? 11/16/2024 [email or web address] Information not available 11/16/2024 Sex: Male Functional Status None recorded. Mental Status None recorded. Family History Nothing Reported. Medical History No medical history recorded. Past Encounters Encounter ID Performer Location Encounter Start Date Encounter Closed Date Diagnosis/Indication Diagnosis SNOMED-CT Code Diagnosis ICD10 Code Diagnosis IMO Codes Diagnosis Note [id number] LOUISA LOWE MD [facility] [address] [place] [address] 10/31/2022 14:10:13 10/31/2022 15:31:35 Urge incontinence of urine 96316607 N39.41 We will arrange for flexible local cystoscopy Large prostate 824577805 N40.0 [id number] LOUISA LOWE MD SURGERY SCHEDULE [address] [place] [address] 11/21/2022 06:46:29 11/21/2022 06:49:30 [id number] MD [facility] [address] [place] [phone] 12/17/2022 10:44:57 12/17/2022 11:18:24 Urge incontinence of urine 24689251 N39.41 Continue current therapy follow-up 3 months [id number] LOUISA LOWE MD [facility] [address] [address] 03/25/2023 14:44:02 03/25/2023 15:05:51 Urge incontinence of urine 74326231 N39.41 Continue current therapy follow-up 3 months Terminal d ribbling of urine 195816148 N39.43 As above, follow-up 6 months earlier if necessary [id number] MD [facility] [address] [place] [id number] 09/20/2023 09:04:33 09/20/2023 09:55:59 Increased frequency of urination 243652465 R35.0 Follow-up 1 year [id number] MD [facility] [address] [address] 08/27/2024 12:01:07 08/27/2024 12:01:25 Acute urinary tract infection 617857946 N39.0 [id number] AKILA TAN JR, MD [facility] [address] [address] 10/29/2024 10:48:13 10/29/2024 11:51:58 Lower urinary tract symptoms due to benign prostatic hypertrophy 4594478324 9101 N40.1 85287239 Start alfuzosin with oxybutynin to improve symptoms. Monitor for response and consider surgery if needed. Blood in urine 14371846 R31.9 05270469 [id number] LOUISA LOWE MD [facility] [address] [place] [phone] 11/16/2024 13:01:39 11/16/2024 14:03:33 Kidney stone 02371945 N20.0 51270 As above Urge incon tinence of urine 95634223 N39.41 323336 Continue current therapy [id number] LOUISA LOWE MD [facility] [address] [address] 01/20/2025 14:58:49 01/20/2025 16:42:10 Kidney stone 05780100 N20.0 30658 As above, follow-up 4 months with [facility] Urolithiasis 90316296 N2 0.9 [id number] Health Concerns Section Related Observation LastModified by Organization Detai ls LastModified Time None Recorded Concern Status LastModified by Organization Details LastModified Time None Recorded Advance Directives Directive None Recorded Payers Insurance Date Sequence Insurance Name Policy Number Policy Khanna Covered Member ID Khanna Member ID Guarantor Name 01/23/2025 2 [employer] (MEDICARE SUPPLEMENT) Hang Pedersen [id number] Hang Pedersen 11/02/2022 1 [facility] (MEDICARE REPLACEMENT/A DVANTAGE - HMO) Hang Pedersen [id number] Hang Pedersen 01/17/2025 1 [place] Hang Pedersen [id number] Hang Pedersen Notes Date Note Type Note Provider Name and Address Organization Details Recorded Time 09/20/2023 text/html Patient is here for 6-month [...] pleased. He typically has nocturia x 1 LOUISA LOWE MD [facility] [place], [address], [facility] 09/26/2023 22:56:56 10/29/2024 text/html The patient is an 79-year-old male presenting with urgency and frequency [...] CT scan performed. 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 He will notify me regarding and decision. Regarding his chronic urinary frequency that seems to be unpredictable. He continues to take oxybutynin chloride. My partner put him on alfuzosin last month and he thinks that may have helped slightly as well. LOUISA LOWE MD [facility] [place], [address], [facility] 11/16/2024 14:06:29 01/20/2025 text/html Patient is here to follow-up on bilateral shockwave lithotripsy. His urine specimen today is unremarkable. He brought in quite a bit of stone fragments. He had no major discomfort with passage. We discussed continued hydration. He will follow-up in 4 months with a KUB. Stone material was sent for analysis. LOUISA LOWE MD [facility] [place], [address], [facility] 01/22/2025 08:28:35
[2025-05-28 08:41] LABS: Alanine Aminotransferase 38 U/L (12-78); Albumin Level 4.2 g/dl (3.5-5.0); Albumin/Globulin Ratio 2.1 (1.1-1.8); Alkaline Phosphatase 57 U/L (38-126); Anion Gap 9.2 mEq/L (5-15); Aspartate Amino Transferase 29 U/L (17-59); Bilirubin,Total 0.9 mg/dl (0.2-1.3); Blood Urea Nitrogen 13 mg/dl (9-20); Calcium 9.6 mg/dl (8.4-10.2); Carbon Dioxide 28 mmol/L (22.0-30.0); Chloride 105 mmol/L (98-107); Cholesterol 106 mg/dl (140-200); Creatinine,Serum 0.80 mg/dl (0.66-1.25); Estimated Glomerular Filt Rate 93 ml/min (>60); GFR (African American) 112 ML/MIN (>60); Globulin 2.0 g/dL (1.3-3.2); Glucose 102 mg/dl (74-100); HDL Cholesterol 32 mg/dl (40-60); Potassium 4.2 mmoL/L (3.5-5.1); Sodium 138 mmol/L (136-145); Total Protein,Serum 6.2 g/dl (6.3-8.2); Triglycerides 167 mg/dl (30-150)
== END 2025-05-28 23:59 | disposition home or self-care (01) ==
LOC: LAB 07:32
PROVIDERS: PCP Internal Medicine; Visit Provider Internal Medicine
DX: E78.2 Mixed hyperlipidemia (principal); I10 Essential (primary) hypertension; I25.10 Atherosclerotic heart disease of native coronary artery without angina pectoris; Z95.1 Presence of aortocoronary bypass graft
CPT/HCPCS: 36415; 80053; 80061

== ENCOUNTER 2025-06-01 07:22 | Day surgery (SDC) | payer MEDICARE, SELFPAY ==
[2025-06-01 07:25] VITALS: BMI 27.7
[2025-06-01] MEDS: LIDOCAINE 2% W/EPI 1:100,000 20ML VIAL 20 ML SUBCUT (07:38)
[2025-06-01 07:46] VITALS: BP 149/78
[2025-06-01 07:52] VITALS: BP 149/78; PULSE 63; RESP 18; O2SAT 97
[2025-06-01 07:55] VITALS: PULSE 60
[2025-06-01 09:26] VITALS: BP 120/52; RESP 15; TEMP 36.1; O2SAT 98
--- NOTE | 2025-06-01 13:44 | P.PCN_ITS ---
[facility] Loop Recorder Date: 06/01/25 Time: 09:24 Procedure Performed:: Loop recroder insertion Indication:: Paroxysmal atrial fibrillation Technique:: Patient was brought to the cardiac Head Of Business Development.? After informed consent obtained, 1% lidocaine with epinephrine was used to anesthetize the site along the left anterior aspect of the chest near the sternal border.? Using the preformed scalpel, an incision was made and using the supplied preloaded apparatus, the loop recorder was placed subcutaneously without difficulty.? Following the deployment of the loop recorder interrogation of the device was performed to ensure appropriate voltage was being detected.? Once this was verified, Steri- Strips were placed over the incision and the patient was prepped to discharge home.? Patient tolerated the procedure well with minimal discomfort. Impression:: Successful implantation of loop recorder Serial Number:: St [id number] Plan:: Routine postop care
== END 2025-06-01 10:00 | disposition home or self-care (01) ==
PROVIDERS: PCP Internal Medicine; Visit Provider Internal Medicine
DX: I48.0 Paroxysmal atrial fibrillation (principal); R00.2 Palpitations; R00.1 Bradycardia, unspecified; I51.89 Other ill-defined heart diseases; I11.0 Hypertensive heart disease with heart failure; I25.10 Atherosclerotic heart disease of native coronary artery without angina pectoris; I42.9 Cardiomyopathy, unspecified; E78.2 Mixed hyperlipidemia; Z79.01 Long term (current) use of anticoagulants; Z79.02 Long term (current) use of antithrombotics/antiplatelets; Z79.890 Hormone replacement therapy; Z79.899 Other long term (current) drug therapy; Z95.1 Presence of aortocoronary bypass graft; Z95.5 Presence of coronary angioplasty implant and graft; Z82.49 Family history of ischemic heart disease and other diseases of the circulatory system
CPT/HCPCS: 33285; C1764; J0690; J2004